=== PATIENT | male | born 1935 | race Caucasian/White ===

== ENCOUNTER 2017-02-02 18:05 | Inpatient (IN) | payer MEDICARE, BC ==
[~2017-02-02] VITALS: Ht 167.6 cm; Wt 81.0 kg
[2017-02-02 18:27] VITALS: BP 173/80; PULSE 70; RESP 18; TEMP 98.6; O2SAT 97
[2017-02-02 20:00] VITALS: BP 146/68; PULSE 66; RESP 19; TEMP 98.2; O2SAT 96
--- NOTE | 2017-02-02 23:54 | HHI.HP ---
[place] [facility] Primary Care Physician Gregory Brody, DO Admission Diagnosis Diagnoses: Travel History International Travel<30 Days: No Contact w/Intl Traveler <30 Da: No Traveled to Known Affected Are: No History of Present Illness History from patient, review of medical records from [facility]. Patient reported that he presented to [facility] in [facility] on January after he had chest pain in the middle of the night around 4 AM. He is unsure whether the chest pain woke him up or whether he was already awake. He reports the pain was midsternal, with heaviness sensation, with radiation to his jaw and his upper extremities. He was evaluated by pc analyst Dr. Saxena there and did undergo coronary angiogram on the same date February 02, 2017. Angiogram reports were missing in the paper chart although the CT disc is available in chart. According to the patient, Dr. Saxena had told him that he had 3 major blood vessels that were blocked and that he would need CABG. Patient reports of prior history of CAD back in the . He stated that at one point he was on beta blockers, and aspirin. He however was no longer on any medications for blood pressure or the heart because for one reason or the other, he does not want to take it and also his doctors did not pressure him to do so. He then had a stress test with Dr. Saxena recently and was actually scheduled for angiogram sometime March. This was canceled now because he had acute coronary syndrome presenting to hospital instead yesterday. Patient's reports a prior history of smoking. Quit in . He states he quit in . His case was discussed with cardiothoracic surgeon by Dr. Saxena and patient was transferred to hours facility for CABG. Patient is currently on heparin drip from the outside facility. Patient is chest pain-free at present. Apart from the chest pain, patient denies any recent fever/nausea/vomiting/ diarrhea/urinary burning or pain on urination. He denies any hematemesis/hematochezia/melena/hematuria. Denies any shortness of breath/palpitations/syncopal episodes. Past Family Social History Past Medical History CAD- had been on cardiac meds in , had stress test with Dr Saxena but was told at that time for scheduled angiogram some time in mar; but was never on beta blockers or aspirin Hypertension Diabetes History of renal stone BPH basal cell cancer of nose Past Surgical History basal cell cancer sx coronary angiogram inguinal hernia left Reported Medications metformin 500mg bid zocor every other day arthirits medicine-combination med not taking any BP meds at home no ASA at home Allergies: Coded Allergies: No Known Allergies (Unverified , 02/02/17) Family History mom- stroke brother- bone cancer father- cancer Social History used to smoke, but quit in mid to late no etoh or drugs Physical Exam Vital Signs Vital Signs Date Time Temp Pulse Resp B/P Pulse Ox O2 Delivery O2 Flow Rate FiO2 02/02/17 20:00 98.2 66 19 146/68 96 02/02/17 18:27 98.6 70 18 173/80 97 Physical Exam GENERAL: This is a well-nourished, well-developed patient, in no apparent distress. SKIN: No rashes, ecchymoses or lesions. Cool and dry. HEAD: Atraumatic. Normocephalic. No temporal or scalp tenderness. EYES: No scleral icterus. No injection or drainage. ENT: Nose without bleeding, purulent drainage or septal hematoma. Airway patent. NECK: Trachea midline. No JVD Cardiovascular: Regular rate and rhythm, no murmur appreciated. RESPIRATORY: Clear to auscultation. Breath sounds equal bilaterally. No wheezes , rales, or rhonchi. GASTROINTESTINAL: Abdomen soft, non-tender, nondistended. No guarding. MUSCULOSKELETAL: Extremities without clubbing, cyanosis, or edema. No calf tenderness. NEUROLOGICAL: Awake and alert. Motor and sensory grossly within normal limits. Normal speech. Laboratory Labs reviewed. CBCnormal. PT PTT within normal limits. Chemistryreviewed. Within normal limits. Troponin less than 0.012. Blood sugar 138 [facility]. No acute pulmonary disease demonstrated. Cardiomegaly present. Assessment and Plan Assessment and Plan Impression: Non-ST elevation MIstatus post coronary angiogram on February 02, 2017 at [facility] in [facility]. Found significant 3 vessel disease per patient's report. Pending CABG. CAD- had been on cardiac meds in , had stress test with Dr Saxena but was told at that time for scheduled angiogram some time in mar; but was never on beta blockers or aspirin Hypertension Diabetes History of renal stone BPH basal cell cancer of nose Plan: Would continue heparin drip. Continue aspirin coreg 3.125mg po q12hrs' fingersicks and sliding scale insulin diet for now till CT sx evaluates DVT prophylaxis on heparin Discussed Condition With patient, his nurse, and Dr Phillips who spoke to CT surgeon Physician Certification 2 Midnight Certification Type: Admission for Inpatient Services Order for Inpatient Services The services are ordered in accordance with Medicare regulations or non- Medicare payer requirements, as applicable. In the case of services not specified as inpatient-only, they are appropriately provided as inpatient services in accordance with the 2-midnight benchmark. Estimated LOS (days): 4 days is the estimated time the patient will need to remain in the hospital, assuming treatment plan goals are met and no additional complications. Post-Hospital Plan: Home Tanner Kelly MD Feb 02, 2017 23:54
[2017-02-03] VITALS (10 sets, daily range): BP systolic 134–157; BP diastolic 65–78; PULSE 63–77; RESP 18–20; TEMP 97.4–98.7; O2SAT 95–98
[2017-02-03] MEDS ORDERED: HEPARIN-D5W INJ 250 ML IV SCH (01:00)
[2017-02-03] MEDS ORDERED: DEXTROSE 50% IN WATER 50 ML VIAL(D50) IV PRN (01:00)
[2017-02-03] MEDS ORDERED: GLUCAGON 1 MG/ML VIAL OTHER PRN (01:00)
[2017-02-03] MEDS ORDERED: ZOCO40TA PO (04:25)
[2017-02-03] MEDS ORDERED: METF500T PO (04:25)
[2017-02-03] MEDS ORDERED: SM M250T (04:25)
[2017-02-03] MEDS ORDERED: LUTE40CA2 PO (04:25)
[2017-02-03] MEDS ORDERED: VITA10002 PO (04:25)
[2017-02-03] MEDS ORDERED: GLUC500C5 PO (04:25)
[2017-02-03] MEDS ORDERED: CINN500C12 (04:25)
[2017-02-03] MEDS ORDERED: VITA250T3 PO (04:25)
[2017-02-03] MEDS ORDERED: DICL75TA PO (04:25)
[2017-02-03] MEDS ORDERED: FISH1000 (04:25)
[2017-02-03] MEDS ORDERED: VITA1000 PO (04:25)
[2017-02-03] MEDS ORDERED: SAW450CA2 PO (04:25)
[2017-02-03 05:34] LABS: MEAN CELL VOLUME 94.3 FL (80.0-100.0); MEAN CORPUSCULAR HEMOGLOBIN 30.6 PG (27.0-34.0); MEAN CORPUSCULAR HGB CONC 32.4 % (32.0-36.0); PLATELET COUNT 294 TH/MM3 (150-450); RED BLOOD COUNT 4.14 MIL/MM3 (4.50-5.90); RED CELL DISTRIBUTION WIDTH 13.2 % (11.6-17.2); REVIEW FLAG FINAL; WHITE BLOOD COUNT 9.8 TH/MM3 (4.0-11.0)
[2017-02-03 05:51] LABS: APTT (PATIENT) 35.5 SEC (24.3-30.1); PROTHROMBIN TIME - PATIENT 11.2 SEC (9.8-11.6)
[2017-02-03] MEDS ORDERED: HEPARIN SODIUM - IV 10,000 UNITS/10 ML VIAL IV PRN ×2 (07:00)
[2017-02-03] MEDS: INSULIN ASPART SUPPLEMENTAL SCALE SQ SCH ×3 (07:00→16:00)
[2017-02-03] MEDS: CARVEDILOL 3.125 MG TAB PO SCH ×2 (08:56→21:45)
[2017-02-03 10:01] LABS: AUTOMATED NEUTROPHIL # 6.6 TH/MM3 (1.8-7.7); BASOPHIL # 0.1 TH/MM3 (0-0.2); BASOPHIL % 0.9 % (0.0-2.0); EOSINOPHIL # 0.2 TH/MM3 (0-0.4); HEMO FLAGS DIFF FINAL; LYMPH % 16.9 % (9.0-44.0); LYMPHOCYTE # 1.5 TH/MM3 (1.0-4.8); MEAN CELL VOLUME 93.1 FL (80.0-100.0); MEAN CORPUSCULAR HEMOGLOBIN 31.6 PG (27.0-34.0); MEAN CORPUSCULAR HGB CONC 33.9 % (32.0-36.0); MONO % 6.9 % (0.0-8.0); NEUT % 73.3 % (16.0-70.0); PLATELET COUNT 273 TH/MM3 (150-450); RED BLOOD COUNT 4.08 MIL/MM3 (4.50-5.90); RED CELL DISTRIBUTION WIDTH 13.1 % (11.6-17.2)
[2017-02-03 10:04] LABS: PROTHROMBIN TIME - PATIENT 11.5 SEC (9.8-11.6)
[2017-02-03 10:19] LABS: BICARBONATE 27.5 MEQ/L (21.0-32.0); POTASSIUM 3.6 MEQ/L (3.5-5.1)
[2017-02-03 13:25] LABS: APTT (PATIENT) 42.2 SEC (24.3-30.1)
[2017-02-03] MEDS: ASPIRIN EC 81 MG TABEC PO SCH (16:18)
[2017-02-03] MEDS ORDERED: SODIUM CHLORIDE 0.9% FLUSH 10 ML FLUSH IV FLUSH PRN (17:30)
[2017-02-03] MEDS ORDERED: ceFAZolin 2 GM PREMIX 50 ML IV SCH (17:30)
[2017-02-03] MEDS ORDERED: CEFAZOLIN INJ 500 MG in SODIUM CHLORIDE 0.9% IRR BTL 500 ML IRRIGATION SCH (17:30)
[2017-02-03] MEDS ORDERED: METOPROLOL TARTRATE 25 MG TAB PO SCH (17:30)
[2017-02-03] MEDS ORDERED: CHLORHEXIDINE GLUCONATE 4% SOLN 120 ML BTL TOPICAL SCH (17:30)
--- NOTE | 2017-02-03 18:40 | RADRPT ---
EXAM DATE/TIME: 02/03/2017 18:25 [facility] COMPARISON: No previous studies available for comparison. INDICATIONS : Evaluate for pneumonia, pneumothorax, and communicable disease. MEDICAL HISTORY : None. SURGICAL HISTORY : None. ENCOUNTER: Initial ACUITY: 1 day PAIN SCORE: 0/10 LOCATION: Bilateral chest FINDINGS: Cardiomegaly and mild diffuse interstitial prominence. Degenerative changes of the spine. On the late ral view there is increased density overlying the heart suspect for either lingular or right middle l obe airspace disease, less conspicuous on the frontal projection. CONCLUSION: Airspace disease and interstitial edema suspected. Eduard Luciano MD on February 03, 2017 at 18:38 Board Certified Radiologist. This report was verified electronically.
[2017-02-03] MEDS ORDERED: PAPAVERINE INJ 60 MG, NITROGLYCERIN INJ 100 MCG, DILTIAZEM INJ 100 MG in SODIUM CHLORID... IRRIGATION SCH (19:00)
[2017-02-03] MEDS ORDERED: INSULIN REGULAR (IV INFUSION) 100 UNITS in SODIUM CHLORIDE 0.9% INJ 100 ML IV SCH (20:00)
--- NOTE | 2017-02-03 20:19 | RADRPT ---
EXAM DATE/TIME: 02/03/2017 19:18 [facility] COMPARISON: No previous studies available for comparison. INDICATIONS : Preop cardiac surgery. MEDICAL HISTORY : Hypercholesterolemia. CAD. Kidney stones. SURGICAL HISTORY : Left groin surgery. TURP. ENCOUNTER: Initial ACUITY: 1 day PAIN SCORE: 2/10 LOCATION: Bilateral neck PEAK SYSTOLIC VELOCITIES (cm/sec): ICA/CCA RATIO: Right: 1.5 Left: 1.8 ICA: Right: 95 Left: 114 CCA: Right: 63 Left: 63 ECA: Right: 105 Left: 93 VERTEBRAL: Right: 46 antegrade Left: 66 antegrade Elevated flow velocities and ICA/CCA ratios have been found to correlate with increased degrees of vessel stenosis, calculated as percentage of diameter relative to a normal segment of distal ICA/CCA FINDINGS: RIGHT CAROTID: No significant stenosis is visualized. The waveforms are within normal limits. LEFT CAROTID: No significant stenosis is visualized. The waveforms are within normal limits. VERTEBRAL ARTERIES: Antegrade flow is seen in both vertebral arteries. MISCELLANEOUS: None. CONCLUSION: 1. No evidence for hemodynamically significant stenosis. There is [id number] atherosclerosis id entified on grayscale images at the bifurcations. This is not hemodynamically significant. Eduard Luciano MD on February 03, 2017 at 20:17 Board Certified Radiologist. This report was verified electronically.
--- NOTE | 2017-02-03 20:25 | RADRPT ---
EXAM DATE/TIME: 02/03/2017 19:38 [facility] COMPARISON: No previous studies available for comparison. INDICATIONS : Preop cardiac surgery. MEDICAL HISTORY : Hypercholesterolemia. CAD. Kidney stones. SURGICAL HISTORY : TURP. Left groin surgery. ENCOUNTER: Initial ACUITY: 1 day PAIN SCORE: 3/10 LOCATION: Bilateral leg. TECHNIQUE: Venous ultrasound of the left and right leg was performed from the inguinal ligament to the proximal calf. Real-time, color Doppler and spectral tracing, compression and augmentation techniques were us ed. FINDINGS: RIGHT LEG: There is normal compressibility of the deep venous system from the inguinal region to the proximal ca lf. No echogenic clot is seen in the lumen of the common femoral, femoral, popliteal, and posterior tibial veins. There is a normal response of the venous system to proximal and distal augmentation an d respiration. LEFT LEG: There is normal compressibility of the deep venous system from the inguinal region to the proximal ca lf. No echogenic clot is seen in the lumen of the common femoral, femoral, popliteal, and posterior tibial veins. There is a normal response of the venous system to proximal and distal augmentation an d respiration. CONCLUSION: Normal examination. Eduard Luciano MD on February 03, 2017 at 20:23 Board Certified Radiologist. This report was verified electronically.
--- NOTE | 2017-02-03 20:33 | RADRPT ---
EXAM DATE/TIME: 02/03/2017 19:47 [facility] COMPARISON: No previous studies available for comparison. INDICATIONS : Preop cardiac surgery. MEDICAL HISTORY : Hypercholesterolemia. Kidney stones. CAD. SURGICAL HISTORY : TURP. Left groin surgery. ENCOUNTER: Initial ACUITY: 1 day PAIN SCORE: 3/10 LOCATION: Bilateral leg. GREATER SAPHENOUS VEIN THIGH: PROXIMAL: Right 5 mm Left 6 mm MID: Right 1 mm Left 2 mm DISTAL: Right 1 mm Left 3 mm CALF: PROXIMAL: Right 2 mm Left 2 mm MID: Right 2 mm Left 1 mm DISTAL: Right 2 mm Left 2 mm FINDINGS: The venous system of the lower extremities are patent by color Doppler imaging. Measurements of the leg veins (in mm) are listed above. CONCLUSION: 1. Venous mapping as above. Patent vessels. Eduard Luciano MD on February 03, 2017 at 20:31 Board Certified Radiologist. This report was verified electronically.
[2017-02-03] MEDS: ATORVASTATIN 10 MG TAB PO SCH (21:45)
[2017-02-03 23:36] LABS: APTT (PATIENT) 42.5 SEC (24.3-30.1)
[2017-02-04] VITALS (16 sets, daily range): BP systolic 108–136; BP diastolic 55–88; PULSE 54–74; RESP 16–20; TEMP 97–98.6; O2SAT 95–100
--- NOTE | 2017-02-04 08:16 | MB ---
cc: TERRIE GRACE DATE OF 1935 DATE OF CONSULTATION 02/03/2017 HISTORY An 81-year-old male transferred from [facility] in [facility] apparently admitted on the after developing chest pain which woke him up about 4:00 a.m. The pain was midsternal, heaviness in his chest. He was evaluated by Dr. Manuel Saxena underwent cardiac catheterization, had three-vessel disease and was transferred to our facility to evaluate for coronary artery bypass grafting. The patient had a recent stress test with Dr. Saxena and was scheduled for angiogram in March of this year. PAST MEDICAL HISTORY Includes: 1. Coronary artery disease. 2. Diabetes mellitus. 3. History of kidney stones. 4. Benign prostatic hypertrophy. 5. Basal cell cancer of the nose. 6. Arthritis. PAST SURGICAL HISTORY Surgeries include: 1. Basal cell cancer removal on the left part of his nose. 2. Coronary angiogram. 3. Inguinal hernia repair on the left. ALLERGIES NO KNOWN ALLERGIES. MEDICATIONS Home meds include: 1. Metformin 500 b.i.d. 2. Zocor [id number]. Does not take a regular aspirin. FAMILY HISTORY Mother 72 from a stroke. Brother in 1985 from bone cancer. Father in 1956, age 65 from prostate cancer. 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 Smoked for about 21 years, quit in the mid 70s, about 2-2-1/2 packs per day. No alcohol or illicit drugs. REVIEW OF SYSTEMS GENERAL: No night sweats, fever, heat or cold intolerance. SKIN: No psoriasis, itching or hives. HEENT: No blurred vision, hearing loss. RESPIRATORY: Mild shortness of breath. CARDIOVASCULAR: As above. GASTROINTESTINAL: No diarrhea, vomiting. GENITOURINARY: No burning, frequency, urgency CENTRAL NERVOUS SYSTEM: No history of TIA, CVA, seizure disorder. ENDOCRINOLOGY: Positive for diabetes. PHYSICAL EXAMINATION VITAL SIGNS: On exam blood pressure was 140/70, heart rate 70, temp maximum 97.4. GENERAL: The patient is awake, alert, in no acute distress. HEENT: Head is normocephalic, atraumatic. Pupils equal and reactive. Oral mucosa pink, moist. NECK: Supple. No JVD. CARDIOVASCULAR: Heart sounds S1-S2, regular rate and rhythm. No audible rubs or gallops. LUNGS: Clear to auscultation. No wheezes or rhonchi. ABDOMEN: Soft, nontender. No masses or organomegaly. EXTREMITIES: No cyanosis, clubbing or edema. LABORATORY FINDINGS Received with the patient included hemoglobin 13, hematocrit of 41, white cell count 7, platelet count 381. AST 20, ALT 23. Troponin less than 0.012. INR was 1.04. IMPRESSION This is an 81-year-old male history of coronary artery disease status post unstable angina and heart catheterization with three-vessel disease. The results of the cardiac cath are pending from [facility]. The cardiac films have been evaluated by Dr. Terrie Grace. Planning will be for surgery on Thursday. In the meantime we will check a 2-D echocardiogram, also carotid ultrasound, leg vein mapping, EKG and further evaluation pending. STS data will then be discussed with the patient and documented in the electronic record. DICTATED BY: STRALA Bourgeois MD SHAN Miek/SHERWIN /5:18 PM /8:16 AM
--- NOTE | 2017-02-04 08:41 | EKG ---
Date Performed: 02/04/2017 Time Performed: 05:10:12 PTAGE: 81 years EKG: Sinus bradycardia Leftward axis Poor R wave progression - probable normal variant Anterior T wave changes are nonspecific Low QRS voltages in precordial leads Borderline ECG PREVIOUS TRACING : 02/03/2017 22.10 DOCTOR: Scar Benz Interpretating Date/Time 02/04/2017 08:39:57
[2017-02-04] MEDS ORDERED: FUROSEMIDE 40 MG/4 ML VIAL IV PUSH ONE (08:45)
[2017-02-04] MEDS ORDERED: POTASSIUM CHLORIDE 10 MEQ CONTROLLED RELEASE TAB PO ONE (08:45)
--- NOTE | 2017-02-04 08:55 | EKG ---
Date Performed: 02/03/2017 Time Performed: 22:10:20 PTAGE: 81 years EKG: Sinus rhythm Leftward axis Poor R wave progression - probable normal variant Low QRS voltages in precordial leads Borderline ECG NO PREVIOUS TRACING DOCTOR: Scar Benz Interpretating Date/Time 02/04/2017 08:54:09
[2017-02-04] MEDS: SODIUM CHLORIDE 0.9% FLUSH 10 ML FLUSH IV FLUSH SCH ×2 (09:00→22:07)
[2017-02-04] MEDS: POLYETHYLENE GLYCOL 17 GM PKG PO SCH (09:43)
[2017-02-04] MEDS: ASPIRIN EC 81 MG TABEC PO SCH (09:44)
[2017-02-04] MEDS: CARVEDILOL 3.125 MG TAB PO SCH ×2 (09:44→22:06)
[2017-02-04] MEDS: DOCUSATE SODIUM 100 MG CAP PO SCH ×2 (09:44→22:06)
--- NOTE | 2017-02-04 10:49 | PD.CAR.PN ---
CVT Progress Note Subjective/Hospital Course: 81/ male transfer from [facility] , chest pain , unstable angina , underwent cardiac cath by Dr Tony Saxena/ found to have 3 vessel coronary disease, Cath films reviewed by Dr Grace plan is to get cath report from transfer facility, and schedule for CABG on Thursday , 2-D echo pending for EF and eval for any valvular disease PMH: CAD, DM, BPH, kidney stones, basal ca of the nose ( removal ) 02/04 pt is pain free, on room air, CXR noted interstitial edema / dose of lasix given PFT pending for surgery on thursday Objective: GENERAL: SKIN: Warm and dry. HEAD: Normocephalic. EYES: No scleral icterus. No injection or drainage. NECK: Supple, trachea midline. No JVD or lymphadenopathy. CARDIOVASCULAR: Regular rate and rhythm without murmurs, gallops, or rubs. RESPIRATORY: Breath sounds equal bilaterally. No accessory muscle use. GASTROINTESTINAL: Abdomen soft, non-tender, nondistended. MUSCULOSKELETAL: No cyanosis, or edema. BACK: Nontender without obvious deformity. No CVA tenderness. Vital Signs Date Time Temp Pulse Resp B/P Pulse Ox O2 Delivery O2 Flow Rate FiO2 02/04/17 05:00 59 02/04/17 04:00 98.5 58 16 125/55 97 02/04/17 04:00 59 02/04/17 04:00 98.6 58 20 125/55 97 02/04/17 03:00 60 02/04/17 02:00 54 02/04/17 01:00 54 02/04/17 00:00 54 02/04/17 00:00 98.2 55 16 124/68 97 02/04/17 00:00 98.0 55 20 124/68 97 02/03/17 23:00 66 02/03/17 22:00 70 02/03/17 21:00 70 02/03/17 20:00 98.0 72 20 149/78 97 02/03/17 20:00 98.0 72 18 149/78 97 02/03/17 20:00 68 02/03/17 19:00 70 02/03/17 16:00 97.4 70 20 149/75 96 02/03/17 12:00 98.0 63 20 146/75 97 Labs: Laboratory Tests Test 02/03/17 02/04/17 22:54 04:50 Activated Partial 42.5 SEC 47.0 SEC Thromboplast Time (24.3-30.1) (24.3-30.1) Result Diagram: 02/03/1791202/03/17912 Telemetry: NSR (1) Unstable angina Plan: ASA, statin BB for surgery on thursday (2) Coronary artery disease (3) Diabetes mellitus Plan: insulin sliding scale / HGB A1C pending diabetic diet (4) Hyperlipemia Plan: statin (5) History of BPH Rupa Sevilla Feb 04, 2017 10:49
[2017-02-04] MEDS ORDERED: POTASSIUM BICARBONATE 25 MEQ EFFERVESCENT TAB PO ONE (11:00)
[2017-02-04] MEDS: INSULIN ASPART SUPPLEMENTAL SCALE SQ SCH ×3 (11:00→21:00)
--- NOTE | 2017-02-04 11:11 | HHI.PR ---
Subjective Remarks Patient reports he is feeling great. He denies chest pain or shortness of breath. Objective Vitals Vital Signs Date Time Temp Pulse Resp B/P Pulse Ox O2 Delivery O2 Flow Rate FiO2 02/04/17 08:00 97.9 71 20 136/88 100 02/04/17 07:00 97.9 71 20 136/88 100 02/04/17 07:00 71 02/04/17 05:00 59 02/04/17 04:00 98.5 58 16 125/55 97 02/04/17 04:00 59 02/04/17 04:00 98.6 58 20 125/55 97 02/04/17 03:00 60 02/04/17 02:00 54 02/04/17 01:00 54 02/04/17 00:00 54 02/04/17 00:00 98.2 55 16 124/68 97 02/04/17 00:00 98.0 55 20 124/68 97 02/03/17 23:00 66 02/03/17 22:00 70 02/03/17 21:00 70 02/03/17 20:00 98.0 72 20 149/78 97 02/03/17 20:00 98.0 72 18 149/78 97 02/03/17 20:00 68 02/03/17 19:00 70 02/03/17 16:00 97.4 70 20 149/75 96 02/03/17 12:00 98.0 63 20 146/75 97 I/O 02/03/17 02/03/17 02/03/17 02/04/17 02/04/17 02/04/17 06:59 14:59 22:59 06:59 14:59 22:59 Intake Total 240 ml 372 ml Output Total 600 ml 600 ml 400 ml Balance -600 ml -360 ml -28 ml Intake Oral 240 ml 240 ml IV Total 132 ml Output Urine Total 600 ml 600 ml 400 ml # Bowel Movements 1 Result Diagram: 02/03/1791202/03/17912 Imaging Last Impressions Lower Extremity Ultrasound 02/03/17 0000 Signed Impressions: Service Date/Time: Friday, February 03, 2017 19:47 - CONCLUSION: 1. Venous mapping as above. Patent vessels. Eduard Luciano MD Chest X-Ray 02/03/17 0000 Signed Impressions: Service Date/Time: Friday, February 03, 2017 18:25 - CONCLUSION: Airspace disease and interstitial edema suspected. Eduard Luciano MD Carotid Artery Ultrasound 02/03/17 0000 Signed Impressions: Service Date/Time: Friday, February 03, 2017 19:18 - CONCLUSION: 1. No evidence for hemodynamically significant stenosis. There is [id number] atherosclerosis identified on grayscale images at the bifurcations. This is not hemodynamically significant. Eduard Luciano MD Objective Remarks GENERAL: This is a well-nourished, well-developed patient, in no apparent distress. CARDIOVASCULAR: Normal rate and regular rhythm without murmurs, gallops, or rubs. RESPIRATORY: Good respiratory efforts. Breath sounds equal and clear to auscultation bilaterally. GASTROINTESTINAL: Abdomen soft, non-tender, non-distended. Normal active bowel sounds MUSCULOSKELETAL: Extremities without cyanosis, or edema. NEURO: Alert & Oriented x4 to person, place, time, situation. Moves all ext x4 PSYCH: Appropriate mood and affect. A/P Assessment and Plan 81/ male transfer from [facility] , chest pain , unstable angina , underwent cardiac cath by Dr Tony Saxena/ found to have 3 vessel coronary disease CAD/Non-ST elevation MIstatus post coronary angiogram on February 02, 2017 at [facility] in [facility]. Found significant 3 vessel disease per patient' s report. - CT surgery following. Plan for CABG on Thursday. - On heparin drip, Coreg, aspirin, Lipitor 2-D echo pending Hypertension -Controlled. Continue Coreg and monitor. Diabetes - Sliding scale insulin with Accu-Cheks. - Check hemoglobin A1c. Discharge Planning Awaiting CABG. Vaishali Saldivar MD Feb 04, 2017 11:11
[2017-02-04 14:29] LABS: BACTERIA, URINE RARE /hpf; BLOOD, URINE NEG (NEG); COMMENT (UR) CULT NOT INDICATED; CULTURE IF INDICATED CULT NOT INDICATED; GLUCOSE,URINE NEG (NEG); KETONE, URINE NEG (NEG); MUCUS URINE FEW /lpf (OCC); NITRITE,URINE NEG (NEG); URINE COLOR LIGHT-YELLOW (YELLW/STRAW)
--- NOTE | 2017-02-04 15:34 | ECHRPT ---
Indication: PRE OP CABG CONCLUSIONS Normal left ventricular size. Mild concentric left ventricular hypertrophy. The left ventricular systolic function is normal with an estimated ejection fraction in the range of 60-65%. No regional wall motion abnormalities are present. Doppler parameters are consistent with impaired left ventricular relaxtion (grade 1 diastolic dysfun ction). Mild mitral valve regurgitation. There is mild tricuspid valve regurgitation. Normal estimated pulmonary pressures. BP: 125 / 55 HR: 58 Rhythm: MEASUREMENTS (Male / Female) Normal Values Technical Quality: 2D ECHO LV Diastolic Diameter PLAX 3.8 cm 4.2 - 5.9 / 3.9 - 5.3 cm LV Systolic Diameter PLAX 2.7 cm IVS Diastolic Thickness 1.3 cm 0.6 - 1.0 / 0.6 - 0.9 cm LVPW Diastolic Thickness 1.3 cm 0.6 - 1.0 / 0.6 - 0.9 cm LV Relative Wall Thickness 0.7 LVOT Diameter 2.0 cm Aortic Root Diameter 2.8 cm LA Systolic Diameter LX 3.3 cm 3.0 - 4.0 / 2.7 - 3.8 cm M-MODE AV Cusp Separation MM 1.8 cm DOPPLER AV Peak Velocity 134.0 cm/s AV Peak Gradient 7.2 mmHg AV Mean Gradient 4.0 mmHg AV Velocity Time Integral 25.4 cm LVOT Peak Velocity 89.5 cm/s LVOT Peak Gradient 3.2 mmHg LVOT Velocity Time Integral 16.4 cm LVOT Cardiac Index 1538.3 cm/minm AV Area Cont Eq vti 2.0 cm AV Area Cont Eq pk 2.1 cm Mitral E Point Velocity 53.3 cm/s Mitral A Point Velocity 85.9 cm/s Mitral E to A Ratio 0.6 LV E' Lateral Velocity 6.4 cm/s Mitral E to LV E' Lateral Ratio 8.3 LV E' Septal Velocity 4.8 cm/s Mitral E to LV E' Septal Ratio 11.2 TR Peak Velocity 247.0 cm/s TR Peak Gradient 24.4 mmHg PV Peak Velocity 88.0 cm/s PV Peak Gradient 3.1 mmHg FINDINGS LEFT VENTRICLE Normal left ventricular size. Mild concentric left ventricular hypertrophy. The left ventricular systolic function is normal with an estimated ejection fraction in the range of 60-65%. No regional wall motion abnormalities are present. Doppler parameters are consistent with impaired left ventricular relaxtion (grade 1 diastolic dysfun ction). RIGHT VENTRICLE Normal right ventricular size and systolic function. LEFT ATRIUM The left atrial size is normal. RIGHT ATRIUM The right atrial size is normal. ATRIAL SEPTUM Normal atrial septal thickness without atrial level shunting by limited color doppler interrogation. AORTA The aortic root and proximal ascending aorta are normal in size on limited imaging. MITRAL VALVE Structurally normal mitral valve. Mild mitral valve regurgitation. AORTIC VALVE Trileaflet aortic valve. No aortic valve stenosis or regurgitation. TRICUSPID VALVE Structurally normal tricuspid valve. There is mild tricuspid valve regurgitation. Normal estimated pulmonary pressures. PULMONARY VALVE The pulmonary valve is not well visualized. VESSELS The inferior vena cava is normal in size. PERICARDIUM No pericardial effusion. Scar Benz MD, FACC (Electronically Signed) Final Date:04 February 2017 15:33
[2017-02-04 16:24] LABS: HEMOGLOBIN A1a 1.5 %; HEMOGLOBIN A1b 1.8 %; HEMOGLOBIN Ao 84.5 %; HEMOGLOBIN LA1C 1.8 %; HEMOGLOBIN P3 3.7 %
[2017-02-04] MEDS: ATORVASTATIN 10 MG TAB PO SCH (22:06)
[2017-02-05] VITALS (20 sets, daily range): BP systolic 118–147; BP diastolic 70–78; PULSE 56–110; RESP 16–20; TEMP 98–98.9; O2SAT 96–98
[2017-02-05 06:45] LABS: AUTOMATED NEUTROPHIL # 6.4 TH/MM3 (1.8-7.7); BASOPHIL # 0.1 TH/MM3 (0-0.2); BASOPHIL % 0.7 % (0.0-2.0); EOSINOPHIL # 0.3 TH/MM3 (0-0.4); EOSINOPHIL % 2.9 % (0.0-4.0); HEMATOCRIT 37.6 % (39.0-51.0); HEMO FLAGS DIFF FINAL; LYMPH % 20.4 % (9.0-44.0); LYMPHOCYTE # 1.9 TH/MM3 (1.0-4.8); MEAN CELL VOLUME 92.6 FL (80.0-100.0); MEAN CORPUSCULAR HEMOGLOBIN 31.4 PG (27.0-34.0); MEAN CORPUSCULAR HGB CONC 33.9 % (32.0-36.0); MONO % 8.7 % (0.0-8.0); NEUT % 67.3 % (16.0-70.0); PLATELET COUNT 295 TH/MM3 (150-450); RED BLOOD COUNT 4.06 MIL/MM3 (4.50-5.90); RED CELL DISTRIBUTION WIDTH 13.1 % (11.6-17.2); WHITE BLOOD COUNT 9.5 TH/MM3 (4.0-11.0)
[2017-02-05] MEDS: INSULIN ASPART SUPPLEMENTAL SCALE SQ SCH ×4 (07:00→20:42)
[2017-02-05 07:01] LABS: APTT (PATIENT) 44.9 SEC (24.3-30.1); PROTHROMBIN TIME - PATIENT 11.5 SEC (9.8-11.6)
[2017-02-05 07:12] LABS: ANION GAP 7 MEQ/L (5-15); AST (GOT) 13 U/L (15-37); BICARBONATE 27.6 MEQ/L (21.0-32.0); BLOOD UREA NITROGEN 20 MG/DL (7-18); CHLORIDE 103 MEQ/L (98-107); GLOMERULAR FILTRATION RATE 86 ML/MIN (>89); POTASSIUM 3.8 MEQ/L (3.5-5.1); SODIUM (NA) 138 MEQ/L (136-145)
[2017-02-05 07:14] LABS: ALT (GPT) 19 U/L (12-78)
[2017-02-05 07:15] LABS: ALKALINE PHOSPHATASE 68 U/L (45-117); TOTAL BILIRUBIN ADULT 0.4 MG/DL (0.2-1.0)
[2017-02-05] MEDS: DOCUSATE SODIUM 100 MG CAP PO SCH ×2 (09:00→20:05)
[2017-02-05] MEDS: POLYETHYLENE GLYCOL 17 GM PKG PO SCH (09:00)
[2017-02-05] MEDS: SODIUM CHLORIDE 0.9% FLUSH 10 ML FLUSH IV FLUSH SCH ×2 (09:00→20:05)
[2017-02-05] MEDS: ASPIRIN EC 81 MG TABEC PO SCH (09:46)
[2017-02-05] MEDS: CARVEDILOL 3.125 MG TAB PO SCH ×2 (09:46→20:05)
--- NOTE | 2017-02-05 10:20 | HHI.PR ---
Subjective Remarks Patient reports he is feeling well. No chest pain or shortness of breath. Plan for CABG tomorrow. Objective Vitals Vital Signs Date Time Temp Pulse Resp B/P Pulse Ox O2 Delivery O2 Flow Rate FiO2 02/05/17 09:00 68 02/05/17 08:00 64 02/05/17 07:00 66 02/05/17 07:00 98.9 96 16 140/71 98 02/05/17 06:00 60 02/05/17 05:00 56 02/05/17 04:00 58 02/05/17 03:00 58 02/05/17 03:00 98.0 61 18 132/70 98 02/05/17 02:00 58 02/05/17 01:00 56 02/05/17 00:00 58 02/04/17 23:00 98.4 61 18 108/63 97 02/04/17 23:00 60 02/04/17 22:00 60 02/04/17 21:00 70 02/04/17 20:00 70 02/04/17 19:00 72 02/04/17 19:00 98.0 69 18 119/75 95 02/04/17 15:00 97.4 70 20 122/70 97 02/04/17 11:00 97.0 74 20 129/74 96 02/04/17 11:00 97.0 74 20 129/72 96 I/O 02/04/17 02/04/17 02/04/17 02/05/17 02/05/17 02/05/17 07:00 15:00 23:00 07:00 15:00 23:00 Intake Total 372 ml 940 ml 770 ml Output Total 400 ml 1000 ml 500 ml Balance -28 ml -60 ml 270 ml Intake Oral 240 ml 720 ml 480 ml IV Total 132 ml 220 ml 290 ml Output Urine Total 400 ml 1000 ml 500 ml # Bowel Movements 1 Result Diagram: 02/05/1761602/05/17616 Objective Remarks GENERAL: This is a well-nourished, well-developed patient, in no apparent distress. CARDIOVASCULAR: Normal rate and regular rhythm without murmurs, gallops, or rubs. RESPIRATORY: Good respiratory efforts. Breath sounds equal and clear to auscultation bilaterally. GASTROINTESTINAL: Abdomen soft, non-tender, non-distended. Normal active bowel sounds MUSCULOSKELETAL: Extremities without cyanosis, or edema. PSYCH: Appropriate mood and affect. A/P Assessment and Plan 81/ male transfer from [facility] for chest pain , unstable angina , underwent cardiac cath by Dr Tony Saxena/ found to have 3 vessel coronary disease CAD/Non-ST elevation MIstatus post coronary angiogram on February 02, 2017 at [facility] in [facility]. Found significant 3 vessel disease per patient' s report. - CT surgery following. Plan for CABG tomorrow. - On heparin drip, Coreg, aspirin, Lipitor 2-D echo showed mild ventricular hypertrophy and grade 1 diastolic dysfunction , otherwise unremarkable. Hypertension -Controlled. Continue Coreg and monitor. Diabetes - Sliding scale insulin with Accu-Cheks. - Check hemoglobin A1c. GI prophylaxis: Stool softener PRN constipation. DVT PPx: on Heparin Discharge Planning Awaiting CABG. Vaishali Saldivar MD Feb 05, 2017 10:20
--- NOTE | 2017-02-05 14:07 | PD.CAR.PN ---
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 HEAD: Normocephalic. EYES: No scleral icterus. No injection or drainage. NECK: Supple, trachea midline. No JVD or lymphadenopathy. CARDIOVASCULAR: Regular rate and rhythm without murmurs, gallops, or rubs. RESPIRATORY: Breath sounds equal bilaterally. No accessory muscle use. GASTROINTESTINAL: Abdomen soft, non-tender, nondistended. MUSCULOSKELETAL: No cyanosis, or edema. BACK: Nontender without obvious deformity. No CVA tenderness. Vital Signs Date Time Temp Pulse Resp B/P Pulse Ox O2 Delivery O2 Flow Rate FiO2 02/05/17 14:02 110 02/05/17 13:00 65 02/05/17 12:00 58 02/05/17 11:00 98.9 64 18 118/76 96 02/05/17 11:00 63 02/05/17 10:17 76 02/05/17 09:00 68 02/05/17 08:00 64 02/05/17 07:00 66 02/05/17 07:00 98.9 96 16 140/71 98 02/05/17 06:00 60 02/05/17 05:00 56 02/05/17 04:00 58 02/05/17 03:00 58 02/05/17 03:00 98.0 61 18 132/70 98 02/05/17 02:00 58 02/05/17 01:00 56 02/05/17 00:00 58 02/04/17 23:00 98.4 61 18 108/63 97 02/04/17 23:00 60 02/04/17 22:00 60 02/04/17 21:00 70 02/04/17 20:00 70 02/04/17 19:00 72 02/04/17 19:00 98.0 69 18 119/75 95 02/04/17 15:00 97.4 70 20 122/70 97 Labs: Laboratory Tests Test 02/05/17 02/05/17 06:17 06:21 White Blood Count 9.5 TH/MM3 (4.0-11.0) Red Blood Count 4.06 MIL/MM3 (4.50-5.90) Hemoglobin 12.7 GM/DL (13.0-17.0) Hematocrit 37.6 % (39.0-51.0) Mean Corpuscular Volume 92.6 FL (80.0-100.0) Mean Corpuscular Hemoglobin 31.4 PG (27.0-34.0) Mean Corpuscular Hemoglobin 33.9 % Concent (32.0-36.0) Red Cell Distribution Width 13.1 % (11.6-17.2) Platelet Count 295 TH/MM3 (150-450) Mean Platelet Volume 7.2 FL (7.0-11.0) Neutrophils (%) (Auto) 67.3 % (16.0-70.0) Lymphocytes (%) (Auto) 20.4 % (9.0-44.0) Monocytes (%) (Auto) 8.7 % (0.0-8.0) Eosinophils (%) (Auto) 2.9 % (0.0-4.0) Basophils (%) (Auto) 0.7 % (0.0-2.0) Neutrophils # (Auto) 6.4 TH/MM3 (1.8-7.7) Lymphocytes # (Auto) 1.9 TH/MM3 (1.0-4.8) Monocytes # (Auto) 0.8 TH/MM3 (0-0.9) Eosinophils # (Auto) 0.3 TH/MM3 (0-0.4) Basophils # (Auto) 0.1 TH/MM3 (0-0.2) CBC Comment DIFF FINAL Differential Comment Prothrombin Time 11.5 SEC (9.8-11.6) Prothromb Time International 1.0 RATIO Ratio Activated Partial 44.9 SEC Thromboplast Time (24.3-30.1) Sodium Level 138 MEQ/L (136-145) Potassium Level 3.8 MEQ/L (3.5-5.1) Chloride Level 103 MEQ/L (98-107) Carbon Dioxide Level 27.6 MEQ/L (21.0-32.0) Anion Gap 7 MEQ/L (5-15) Blood Urea Nitrogen 20 MG/DL (7-18) Creatinine 0.85 MG/DL (0.60-1.30) Estimat Glomerular Filtration 86 ML/MIN (>89) Rate Random Glucose 125 MG/DL (74-106) Calcium Level 8.7 MG/DL (8.5-10.1) Total Bilirubin 0.4 MG/DL (0.2-1.0) Aspartate Amino Transf 13 U/L (15-37) (AST/SGOT) Alanine Aminotransferase 19 U/L (12-78) (ALT/SGPT) Alkaline Phosphatase 68 U/L (45-117) Total Protein 6.6 GM/DL (6.4-8.2) Albumin 3.2 GM/DL (3.4-5.0) Blood Type AB POSITIVE AB POSITIVE Antibody Screen NEGATIVE Crossmatch Leukocyte-Reduced Red Blood Cells Blood Bank Comment Result Diagram: 02/05/1761602/05/17616 Telemetry: NSR (1) Unstable angina Plan: ASA, statin BB for surgery on thursday (2) Coronary artery disease (3) Diabetes mellitus Plan: insulin sliding scale / HGB A1C pending diabetic diet (4) Hyperlipemia Plan: statin (5) History of BPH Rupa Sevilla Feb 05, 2017 14:07
[2017-02-05 18:33] LABS: HEMOGLOBIN A1a 1.1 %; HEMOGLOBIN A1b 1.8 %; HEMOGLOBIN Ao 84.2 %; HEMOGLOBIN LA1C 2.1 %; HEMOGLOBIN P3 3.9 %
[2017-02-05] MEDS: ATORVASTATIN 10 MG TAB PO SCH (20:05)
[2017-02-06] VITALS (15 sets, daily range): BP systolic 87–140; BP diastolic 41–65; PULSE 64–85; RESP 8–23; TEMP 97.7–99.3; O2SAT 94–100
[2017-02-06] MEDS ORDERED: PROTAMINE SULFATE 250 MG/25 ML VIAL IV ONE (05:00)
[2017-02-06] MEDS ORDERED: SODIUM BICARBONATE 8.4% INJ 50 MEQ/50 ML SYR IV ONE (05:00)
[2017-02-06] MEDS ORDERED: HEPARIN SODIUM - SQ 10,000 UNITS/ML VIAL SQ ONE (05:00)
[2017-02-06] MEDS ORDERED: CALCIUM CHLORIDE 10% SOLN 1 GRAM/10 ML SYR IV ONE (05:00)
[2017-02-06] MEDS ORDERED: PROPOFOL 1000 MG/100 ML INJ 100 ML IV ONE (05:00)
[2017-02-06] MEDS ORDERED: PHENYLEPHRINE HCL 10 MG/ML VIAL IV ONE (05:00)
[2017-02-06] MEDS ORDERED: AMINOCAPROIC ACID INJ 250 MG/ML 20 ML VIAL IV ONE ×2 (05:00→10:52)
[2017-02-06] MEDS ORDERED: MAGNESIUM SULFATE 1000 MG/2 ML VIAL (PED) IV ONE (05:00)
[2017-02-06] MEDS: INSULIN ASPART SUPPLEMENTAL SCALE SQ SCH ×4 (06:18→20:15)
[2017-02-06 06:19] LABS: HEMATOCRIT 38.8 % (39.0-51.0); MEAN CELL VOLUME 94.1 FL (80.0-100.0); MEAN CORPUSCULAR HEMOGLOBIN 31.5 PG (27.0-34.0); MEAN CORPUSCULAR HGB CONC 33.5 % (32.0-36.0); PLATELET COUNT 302 TH/MM3 (150-450); RED BLOOD COUNT 4.12 MIL/MM3 (4.50-5.90); REVIEW FLAG FINAL; WHITE BLOOD COUNT 10.4 TH/MM3 (4.0-11.0)
[2017-02-06] MEDS ORDERED: methylPREDNISolone SOD SUCC 125 MG/2 ML VIAL ONE (06:20)
[2017-02-06] MEDS ORDERED: ceFAZolin 2 GM PREMIX 50 ML ONE (06:20)
[2017-02-06] MEDS ORDERED: HEPARIN SODIUM - SQ 10,000 UNITS/ML VIAL ONE (06:20)
[2017-02-06] MEDS ORDERED: VANCOMYCIN HCL 1000 MG VIAL ONE (06:20)
[2017-02-06] MEDS ORDERED: CARDIOPLEGIC IRR 1,000 ML ONE (06:36)
[2017-02-06] MEDS ORDERED: POTASSIUM CHLORIDE 40 MEQ/20 ML VIAL ONE (06:36)
[2017-02-06] MEDS ORDERED: ALBUMIN HUMAN 25% 12.5 GM/50 ML BAGP IV ONE (06:37)
[2017-02-06] MEDS ORDERED: HEPARIN SODIUM - IV 10,000 UNITS/10 ML VIAL ONE (06:37)
[2017-02-06] MEDS ORDERED: MANNITOL INJ 50 ML ONE (06:37)
[2017-02-06] MEDS ORDERED: CHLORHEXIDINE GLUCONATE 2 % 1 PACK (2 CLOTHS) TOPICAL ONE (07:13)
[2017-02-06] MEDS ORDERED: ACETAMINOPHEN 1000 MG/100 ML VIAL IV ONE (08:49)
[2017-02-06] MEDS ORDERED: DEXMEDETOMIDINE HCL 200 MCG/2 ML VIAL ONE (08:49)
[2017-02-06] MEDS: SODIUM CHLORIDE 0.9% FLUSH 10 ML FLUSH IV FLUSH SCH ×3 (09:00→20:16)
[2017-02-06] MEDS: ACETAMINOPHEN 1000 MG/100 ML VIAL IV SCH ×3 (09:00→20:16)
[2017-02-06] MEDS: ASPIRIN EC 81 MG TABEC PO SCH (09:00)
[2017-02-06] MEDS: DOCUSATE SODIUM 100 MG CAP PO SCH ×2 (09:00→20:14)
[2017-02-06] MEDS: POLYETHYLENE GLYCOL 17 GM PKG PO SCH (09:00)
[2017-02-06] MEDS ORDERED: CALCIUM CHLORIDE 10% 1 GRAM/10 ML VIAL IV PRN (10:15)
[2017-02-06] MEDS ORDERED: INSULIN REGULAR (IV INFUSION) 100 UNITS in SODIUM CHLORIDE 0.9% INJ 99 ML IV SCH (10:15)
[2017-02-06] MEDS ORDERED: POTASSIUM CHLORIDE 20 MEQ CONTROLLED RELEASE TAB PO PRN ×2 (10:15)
[2017-02-06] MEDS ORDERED: hydrALAZINE HCL 20 MG/ML VIAL IV PRN (10:15)
[2017-02-06] MEDS ORDERED: LACTATED RINGER'S 1000 ML INJ 500 ML IV PRN (10:15)
[2017-02-06] MEDS ORDERED: CLEVIDIPINE INJ 50 ML IV SCH (10:15)
[2017-02-06] MEDS ORDERED: POTASSIUM CHLOR 20 MEQ PREMIX 100 ML IV PRN ×2 (10:15)
[2017-02-06] MEDS ORDERED: METOPROLOL TARTRATE 5 MG/5 ML VIAL IV PUSH PRN (10:15)
[2017-02-06] MEDS ORDERED: SODIUM CHLORIDE 0.9% FLUSH 10 ML FLUSH IV FLUSH PRN (10:15)
[2017-02-06] MEDS ORDERED: ONDANSETRON HCL 4 MG/2 ML VIAL IV PUSH PRN (10:15)
[2017-02-06] MEDS ORDERED: RESP: RACEPINEPHRINE 2.25% 0.5 ML NEB NEB PRN (10:15)
[2017-02-06] MEDS ORDERED: MAGNESIUM SULFATE INJ 2 GM in SODIUM CHLORIDE 0.9% INJ 100 ML IV PRN ×4 (10:15)
[2017-02-06] MEDS ORDERED: ACETAMINOPHEN 325 MG TAB PO PRN (10:15)
[2017-02-06] MEDS ORDERED: DEXTROSE 50% IN WATER 50 ML VIAL(D50) IV PUSH PRN (10:15)
[2017-02-06] MEDS ORDERED: ALBUMIN HUMAN 5% 12.5 GM/250 ML BOTTLE IV PRN (10:15)
[2017-02-06] MEDS ORDERED: ACETAMINOPHEN 650 MG SUPP RECTAL PRN (10:15)
[2017-02-06] MEDS ORDERED: CALCIUM CHLORIDE INJ 1 GM in SODIUM CHLORIDE 0.9% INJ 100 ML IV PRN (10:15)
[2017-02-06] MEDS ORDERED: Post-op Orders (for Pharmacy) MISC OTHER ONE (10:15)
[2017-02-06] MEDS ORDERED: RESP: ALBUTEROL 2.5 MG/IPRATROPIUM 0.5 MG NEB (PRN) NEB (10:15)
--- NOTE | 2017-02-06 10:31 | PD.OP ---
cc: Terrie Grace MD; Manuel Saxena MD Operative Report Date of Surgery: Feb 06, 2017 Preoperative Diagnosis: (1) Unstable angina (2) Coronary artery disease Postoperative Diagnosis: same Procedure: Pump assisted beating heart CABG x 3 DONOVAN to LAD - good SVG to OM - good SVG to PDA - fair EVH Anesthesia: Dr. Brito Surgeon: Terrie Grace Black Top Paver Operator(s): CAPRI Lizarraga Operation and Findings: The risks, benefits, complications, treatment options, and expected outcomes were discussed with the patient. The possibilities of reaction to medication, pulmonary aspiration, perforation of viscus, bleeding, recurrent infection, the need for additional procedures, failure to diagnose a condition, and creating a complication requiring transfusion or operation were discussed with the patient. The patient concurred with the proposed plan, giving informed consent. The site of surgery properly noted/marked. The patient was taken to Operating Room, identified as Jatin Mckinney and the procedure verified as CABG, EVH. A Time Out was held and the above information confirmed. Standard monitoring lines and Ambrose catheter were placed. General anesthesia was induced. The patient was prepped and draped in a sterile fashion. A median sternotomy was performed and electrocautery was used to obtain hemostasis. The left internal mammary artery was procured as a pedicle from the 7th rib to the 1st rib in the usual manner. Simultaneously left greater saphenous vein was procured from the left leg using a minimally invasive endoscopic technique. The vein was prepared for anastomosis and the leg wound was irrigated and closed in 2 layers. The pericardium was opened and a pericardial sling was created using interrupted 0 silk sutures. The patient was heparinized for cardiopulmonary bypass and the distal mammary pedicle was instrumented for anastomosis. The heart was instrumented for cardiopulmonary bypass in the usual manner. The patient was noted to have significant calcification in the ascending aorta which precluded crossclamp use and arresting the heart. A Maquet stabilizer was used with a beating heart approach. The distal right coronary circulation was investigated and the distal PDA was opened with a Platte blade and found to be a 1 millimeter fair target with diffuse disease. Saphenous vein was approximated to the PDA artery using a running 7 0 Prolene suture. The graft was measured for length and orientation and was suspended from the pericardium. The 1st circumflex marginal artery was then opened with a Platte blade and found to be a 1.5 millimeter good target. The OM1 artery was intramyocardial. Saphenous vein was approximated to the OM1 artery using a running 7 0 Prolene suture. The graft was measured for length and orientation and was suspended from the pericardium. The distal LAD was opened with a Platte blade and found to be a 1.5 millimeter good target. The left internal mammary artery was approximated to the LAD using a running 7 0 Prolene suture. The pedicle was attached to the epicardium using interrupted 5 0 silk suture. The patient was systemically rewarmed. The proximal anastomoses to the PDA and OM1 graft was accomplished using a running 5 0 Prolene suture after creating an aortotomy and using a Heartstring device. All proximal and distal anastomoses were examined for hemostasis. The patient was weaned from cardiopulmonary bypass. Protamine was given. There was no adverse reaction. Decannulation was carried out without incident. Wound was checked for hemostasis which was obtained using electrocautery. A 36 Romanian mediastinal and 32 Romanian left pleural chest was were placed and secured to the skin with 0 silk suture. The sternum was closed with stainless steel wire. The fascia was closed with 1. PDS. The subcutaneous tissue was closed using a running 2-0 Vicryl suture. The skin was closed with 4-0 Monocryl. Sterile dressings were placed. At the end of the operation, all sponge, instruments, and needle counts were correct. The patient was transferred to the CVICU in stable condition. 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
[2017-02-06] MEDS ORDERED: VECURONIUM BROMIDE 10 MG VIAL IV ONE (10:52)
[2017-02-06] MEDS ORDERED: LACTATED RINGER'S 1000 ML INJ 1,000 ML IV ONE (10:52)
[2017-02-06] MEDS ORDERED: SODIUM CHLORIDE 0.9% INJ 200 ML IV ONE (10:53)
[2017-02-06] MEDS ORDERED: SODIUM CHLOR 0.9% 250 ML INJ 250 ML IV ONE (10:53)
[2017-02-06] MEDS ORDERED: NORMOSOL R INJ 1,000 ML IV ONE (10:53)
[2017-02-06] MEDS: METOCLOPRAMIDE HCL 10 MG/2 ML VIAL IV PUSH SCH ×3 (11:00→20:15)
[2017-02-06] MEDS ORDERED: fentaNYL CITRATE 1000 MCG/20 ML VIAL ONE (11:15)
[2017-02-06] MEDS ORDERED: MIDAZOLAM HCL 5 MG/5 ML VIAL ONE ×2 (11:15)
--- NOTE | 2017-02-06 11:57 | RADRPT ---
EXAM DATE/TIME: 02/06/2017 11:24 [facility] COMPARISON: CHEST PA & LAT, February 03, 2017, 18:25. INDICATIONS : Post CABG MEDICAL HISTORY : Cardiovascular disease. SURGICAL HISTORY : CABG. ENCOUNTER: Subsequent ACUITY: 1 day PAIN SCORE: Non-responsive. LOCATION: Bilateral chest FINDINGS: Portable AP view of the chest demonstrates a normal-sized cardiac silhouette in this patient post med dominic sternotomy. ETT distal tip measures 2.9 cm from the june, NG tube courses beyond the GE junctio n, and left subclavian central line distal tip is in the superior vena cava. There is a mediastinal d rain and left chest tube present and no pneumothorax is visualized. There is mild atelectasis at the lung bases. CONCLUSION: Expected findings are present following recent median sternotomy and CABG. No pneumothorax or acute a bnormality is identified. Dc Ayala MD on February 06, 2017 at 11:54 Board Certified Radiologist. This report was verified electronically.
[2017-02-06] MEDS: AMIODARONE 200 MG TAB PO SCH ×2 (14:00→20:15)
[2017-02-06] MEDS: POTASSIUM CHLOR 20 MEQ PREMIX 100 ML IV PRN ×2 (14:14→14:15)
--- NOTE | 2017-02-06 14:57 | HHI.PR ---
Subjective Remarks Status post CABG. Patient seen postoperatively. He reports doing ok except for dull ache at the sternotomy site. No shortness of breath. Objective Vitals Vital Signs Date Time Temp Pulse Resp B/P Pulse Ox O2 Delivery O2 Flow Rate FiO2 02/06/17 13:23 99 Nasal Cannula 2.00 02/06/17 13:23 99 Nasal Cannula 2 02/06/17 13:20 40 02/06/17 12:00 40 02/06/17 11:40 98.2 68 8 101/57 97 116/62 02/06/17 11:25 64 12 88/49 97 107/48 02/06/17 11:25 40 02/06/17 11:25 97 Mechanical Ventilator 40 02/06/17 11:15 97 40 02/06/17 11:07 97.7 66 12 88/49 97 87/41 02/06/17 11:00 97.7 65 23 101/43 100 02/06/17 11:00 65 02/06/17 11:00 97 Mechanical Ventilator 50 02/06/17 11:00 50 02/06/17 06:00 67 02/06/17 05:00 75 02/06/17 04:00 76 02/06/17 04:00 98.4 76 18 115/65 96 02/06/17 02:00 68 02/06/17 00:00 98.4 68 18 140/57 95 02/06/17 00:00 68 02/05/17 22:00 67 02/05/17 20:00 98.0 75 20 147/78 97 02/05/17 20:00 75 02/05/17 18:00 68 02/05/17 17:00 70 02/05/17 15:00 68 02/05/17 15:00 98.9 68 18 139/76 98 I/O 02/05/17 02/05/17 02/05/17 02/06/17 02/06/17 02/06/17 07:00 15:00 23:00 07:00 15:00 23:00 Intake Total 770 ml 50 ml 472 ml Output Total 500 ml 232 ml Balance 270 ml 50 ml 240 ml Intake Oral 480 ml 240 ml IV Total 290 ml 50 ml 232 ml Output Urine Total 500 ml 232 ml # Bowel Movements 0 0 Result Diagram: 02/06/17 0550 02/05/1717 Objective Remarks GENERAL: This is a well-nourished, well-developed patient, in no apparent distress. CARDIOVASCULAR: S/P sternotomy. Normal rate and regular rhythm without murmurs, gallops, or rubs. RESPIRATORY: Good respiratory efforts. Breath sounds equal and clear to auscultation bilaterally. GASTROINTESTINAL: Abdomen soft, non-tender, non-distended. Normal active bowel sounds MUSCULOSKELETAL: Extremities without cyanosis, or edema. PSYCH: Appropriate mood and affect. A/P Assessment and Plan 81/ male transfer from [facility] for chest pain , unstable angina , underwent cardiac cath by Dr Tony Saxena/ found to have 3 vessel coronary disease CAD/Non-ST elevation MIstatus post coronary angiogram on February 02, 2017 at [facility] in [facility]. Found significant 3 vessel disease per patient' s report. - CT surgery following. S/P CABG. Stable post op. - Post op plan per CT surgery. On Amiodarone, aspirin, Lipitor 2-D echo showed mild ventricular hypertrophy and grade 1 diastolic dysfunction , otherwise unremarkable. Hypertension -Controlled. monitor. Diabetes - Sliding scale insulin with Accu-Cheks. - Hemoglobin A1c 6.3 GI prophylaxis: Stool softener PRN constipation. DVT PPx: on Heparin Vaihsali Saldivar MD Feb 06, 2017 14:57
[2017-02-06] MEDS: RESP: ALBUTEROL 2.5 MG/IPRATROPIUM 0.5 MG NEB (SCH) NEB ×2 (16:00→21:09)
--- NOTE | 2017-02-06 16:10 | HHI.FF ---
Face to Face Verification Diagnosis: (1) Unstable angina (2) Coronary artery disease (3) Diabetes mellitus (4) Hyperlipemia (5) History of BPH Physical Therapy Order: Evaluate and Treat Home Health Nursing Order: Signs/symptoms of disease process Medication education-adverse effect Wound care and dressing changes Nursing assessment with vital signs Instructions: Heart and Vascular Surgery patients *Special attention to sternal dressing Mandatory frequency Assess and evaluation, 4 days in a row The next week 3X week 2 times a week for 4 weeks 1 time a week for 5 weeks Schedule Heart and Vascular patients for full 60 day certification period Initial visit Review Open Heart Surgery Discharge Instructions (Sternal precautions, Activity, Elastic hose, Incision care, Driving, Incentive spirometry, Smoking, [place], Work and other) Need Betadine to paint incision Medication reconciliation Importance of follow up care/ check on appointments Make calendar record temperature daily When to call [facility] nurse, review instructions, phone list Incentive Spirometry, demonstration Visit 1- Begin discharge instruction for patient family and/ or caregiver using teach back method- Signs and symptoms of infection Disease characteristics Medicines and side effects Foods and nutrition/ appetite Infection control/ hand washing/ hygiene Visit 2- Continue teaching Discharge instructions- include additional information on smoking cessation , sternal dressing (sternal vac) Visit 3- Continue teaching- Cough and deep breathing, incision monitoring. Choose my plate Visit 4- Continue teaching- Discuss limitations Discuss how they are feeling Discuss progress toward goals Remaining visits- continue teaching and monitoring PREVENA Single Use Negative Wound Therapy System Caregiver Instruction Sheet 1. A Prevena dressing system was applied to the chest incision during surgery , to promote wound healing. It works via a suction device (negative pressure wound therapy) to remove low to moderate levels of exudate (drainage) and infectious materials. We recommend that the device stay in place for up to seven days, from day of surgery. 2. Day of Surgery____7/ Day of Removal ___/ 3. The dressing should only be removed by a health urgent care. Please arrange removal of device to coincide with Home Health visit and or with Nursing staff at Rehab 4. If skin reddening or irritation of skin occurs, or excessive drainage, please notify the Cardiovascular Surgeons office at [phone]. 5. Light showering is permissible; however the pump should be disconnected and placed in safe location, where it will not get wet. The dressing should not be exposed to direct spray or submerged in water. No bath tub / shower only. Ensure the end of the tubing attached to the dressing is facing down so that water does not enter the top of the tube. 6. To remove Prevena dressing: press purple button to turn off device / remove the suction. Then disconnect the tubing from the pump. The fixation strips should be stretched away from the skin and the dressing lifted at one corner and peeled back until it has been fully removed. 7. After removal, it is ok to shower daily using liquid dial soap and clean wash cloth, rinse and pat dry, and leave incision open to air dry. For any concerns regarding Prevena dressing, and or wounds, please contact Deanna Zhang, patient navigator at [phone] or notify the Cardiovascular Surgeons office at [phone]. Incentive spirometry Q1 hr x 10, while awake, also use acapella device hourly whole awake Sternal Breast Bone Precautions: NO pushing or pulling, ( pt must use sternal pillow to support chest with all activities and with coughing ( takes up to 3 months breast bone to heal ) All females to wear sternal bra , launder as needed Daily incision care: ok to shower daily, no tub bath. Wash all incisions with liquid dial soap, clean wash cloth to each site, rinse and pat dry. Observe for any signs of infection, such as drainage which is dark yellow, petty, green or foul smelling. Immediately report to the surgeon any drainage from the chest incision, or legs, and for any abnormal drainage from the chest tube sites. Notify surgeon if any temp >101.5 degrees F. When specialty dressing removed/ or if you do not have one, continue to shower daily as above, then rinse and pat incision dry and paint with betadine daily x 5 days. Allow steri strips to fall off if you have any. Avoid lotions, creams, salves, oils, etc. for the first month Please see attached forms for additional instructions regarding post Open Heart specialty wound vacuum dressings. SHANTELLE or Prevena , Dressing to be removed by Nursing staff on ___02/13/17____ For Dr. Grace patients , please obtain CBC, BMP, PA & Lat CXR in 2 weeks, results to Dr. Grace ( prescription will be given) ( ) (Tele: [phone]) , F/U appointment: as per DC instructions: PCP in 2 weeks, CV surgeon 2 weeks, Seed Cleaner 3-4 weeks For any questions regarding incisions/ dressing / meds / post op care or above Symptoms, Thursday 8am-5pm Heart & Vascular Surgery Office ( Dr. Moulton & Dr. Grace), After Hours / Nights (5pm -8am) Weekends and Holidays Please call [facility] Card[facility] Unit (C[facility]) Charge Nurse I have seen patient Jatin Mckinney on 02/06/17. My clinical findings support the need for the requested home health care services because: Deconditioned w/ increased weakness I certify that my clinical findings support that this patient is homebound because: Post-op weakness Rupa Sevilla Feb 06, 2017 16:10
[2017-02-06] MEDS: ATORVASTATIN 10 MG TAB PO SCH (20:15)
[2017-02-06] MEDS: oxyCODONE/ACETAMINOPHEN 5 MG/325 MG TAB PO PRN ×2 (20:15→23:27)
[2017-02-07] VITALS (11 sets, daily range): BP systolic 116–142; BP diastolic 55–71; PULSE 68–92; RESP 12–18; TEMP 98.4–99.8; O2SAT 94–97
[2017-02-07] MEDS: ACETAMINOPHEN 1000 MG/100 ML VIAL IV SCH ×4 (03:00→23:23)
[2017-02-07] MEDS: oxyCODONE/ACETAMINOPHEN 5 MG/325 MG TAB PO PRN ×5 (04:03→21:52)
[2017-02-07] MEDS: RESP: ALBUTEROL 2.5 MG/IPRATROPIUM 0.5 MG NEB (SCH) NEB ×3 (04:37→19:05)
[2017-02-07 05:03] LABS: HEMATOCRIT 32.3 % (39.0-51.0); MEAN CELL VOLUME 94.3 FL (80.0-100.0); MEAN CORPUSCULAR HEMOGLOBIN 31.6 PG (27.0-34.0); MEAN CORPUSCULAR HGB CONC 33.5 % (32.0-36.0); PLATELET COUNT 243 TH/MM3 (150-450); RED BLOOD COUNT 3.42 MIL/MM3 (4.50-5.90); RED CELL DISTRIBUTION WIDTH 13.5 % (11.6-17.2); REVIEW FLAG FINAL; WHITE BLOOD COUNT 22.6 TH/MM3 (4.0-11.0)
[2017-02-07 05:18] LABS: BICARBONATE 22.3 MEQ/L (21.0-32.0); MAGNESIUM 2.3 MG/DL (1.5-2.5); POTASSIUM 4.1 MEQ/L (3.5-5.1)
--- NOTE | 2017-02-07 06:15 | RADRPT ---
EXAM DATE/TIME: 02/07/2017 04:07 [facility] COMPARISON: CHEST SINGLE AP, February 06, 2017, 11:24. INDICATIONS : Evaluate right side chest tube, post CABG MEDICAL HISTORY : Cardiovascular disease. SURGICAL HISTORY : CABG. ENCOUNTER: Initial ACUITY: 1 day PAIN SCORE: 8/10 LOCATION: Bilateral chest FINDINGS: There has been interval extubation and removal of nasogastric tube. Left thoracostomy tubes and left subclavian central line are unchanged. A I do not see a right-sided chest tube. There is mild perihil ar interstitial prominence and slight parenchymal opacity at the left lung base, similar to prior. Ca rdiomediastinal contours are stable. CONCLUSION: Interval extubation. Otherwise little change. Dc Hinson MD on February 07, 2017 at 6:12 Board Certified Radiologist. This report was verified electronically.
[2017-02-07] MEDS: AMIODARONE 200 MG TAB PO SCH ×3 (06:38→23:24)
[2017-02-07] MEDS: PANTOPRAZOLE SOD 40 MG DELAYED RELEASE TAB PO SCH (06:38)
[2017-02-07] MEDS: INSULIN ASPART SUPPLEMENTAL SCALE SQ SCH ×5 (07:00→22:00)
[2017-02-07] MEDS: POLYETHYLENE GLYCOL 17 GM PKG PO SCH (07:29)
[2017-02-07] MEDS: METOCLOPRAMIDE HCL 10 MG/2 ML VIAL IV PUSH SCH ×4 (07:43→20:25)
--- NOTE | 2017-02-07 08:29 | PD.CAR.PN ---
CVT Progress Note CVT: POD #: 1 Subjective/Hospital Course: 81/ male transfer from [facility] , chest pain , unstable angina , underwent cardiac cath by Dr Tony Saxena/ found to have 3 vessel coronary disease, Cath films reviewed by Dr Grace plan is to get cath report from transfer facility, and schedule for CABG on Thursday , 2-D echo pending for EF and eval for any valvular disease PMH: CAD, DM, BPH, kidney stones, basal ca of the nose ( removal ) 02/04 pt is pain free, on room air, CXR noted interstitial edema / dose of lasix given PFT pending for surgery on monday 02/05 for surgery in am pt pain free 02/06/17 No complaints Objective: Vital Signs Date Time Temp Pulse Resp B/P Pulse Ox O2 Delivery O2 Flow Rate FiO2 02/07/17 08:00 99.1 81 16 142/56 94 120/56 02/07/17 07:00 78 02/07/17 03:00 69 02/07/17 03:00 95 Nasal Cannula 2.00 02/07/17 03:00 99.8 81 12 127/64 94 135/55 02/06/17 23:00 77 02/06/17 23:00 94 Nasal Cannula 2.00 02/06/17 23:00 99.3 82 16 117/64 94 139/55 02/06/17 21:11 94 Nasal Cannula 1.00 02/06/17 19:00 98.2 85 12 113/63 99 139/59 02/06/17 19:00 80 02/06/17 19:00 94 Nasal Cannula 2.00 02/06/17 16:59 18 02/06/17 15:45 16 02/06/17 15:00 97.8 68 14 117/64 97 126/60 02/06/17 15:00 80 02/06/17 15:00 97 Nasal Cannula 2.00 02/06/17 13:23 99 Nasal Cannula 2.00 02/06/17 13:23 99 Nasal Cannula 2 02/06/17 13:21 97 Nasal Cannula 2.00 02/06/17 13:20 Mechanical Ventilator 02/06/17 13:20 40 02/06/17 12:00 40 02/06/17 11:40 98.2 68 8 101/57 97 116/62 02/06/17 11:25 64 12 88/49 97 107/48 02/06/17 11:25 40 02/06/17 11:25 97 Mechanical Ventilator 40 02/06/17 11:15 97 40 02/06/17 11:07 97.7 66 12 88/49 97 87/41 02/06/17 11:00 97.7 65 23 101/43 100 02/06/17 11:00 65 02/06/17 11:00 97 Mechanical Ventilator 50 02/06/17 11:00 50 Labs: Laboratory Tests Test 02/07/17 04:30 White Blood Count 22.6 TH/MM3 (4.0-11.0) Red Blood Count 3.42 MIL/MM3 (4.50-5.90) Hemoglobin 10.8 GM/DL (13.0-17.0) Hematocrit 32.3 % (39.0-51.0) Mean Corpuscular Volume 94.3 FL (80.0-100.0) Mean Corpuscular Hemoglobin 31.6 PG (27.0-34.0) Mean Corpuscular Hemoglobin 33.5 % Concent (32.0-36.0) Red Cell Distribution Width 13.5 % (11.6-17.2) Platelet Count 243 TH/MM3 (150-450) Mean Platelet Volume 7.8 FL (7.0-11.0) Sodium Level 138 MEQ/L (136-145) Potassium Level 4.1 MEQ/L (3.5-5.1) Chloride Level 106 MEQ/L (98-107) Carbon Dioxide Level 22.3 MEQ/L (21.0-32.0) Anion Gap 10 MEQ/L (5-15) Blood Urea Nitrogen 16 MG/DL (7-18) Creatinine 0.59 MG/DL (0.60-1.30) Estimat Glomerular Filtration 132 ML/MIN Rate (>89) Random Glucose 128 MG/DL (74-106) Calcium Level 7.8 MG/DL (8.5-10.1) Magnesium Level 2.3 MG/DL (1.5-2.5) Result Diagram: 02/07/17 0430 02/07/17 0430 Imaging: Last 24 hours Impressions Chest X-Ray 02/07/17 0500 Signed Impressions: Service Date/Time: Tuesday, February 07, 2017 04:07 - CONCLUSION: Interval extubation. Otherwise little change. Dc Hinson MD Cardiovascular: RRR Pulmonary: CTA GI/: NABS Incision: dry and intact CT: 180ml/12 hrs Plan: Transfer to stepdown Beta treri and ASA Statin Encourage ambulation, up to chair Advance diet Cont. chest tubes (1) Unstable angina Plan: ASA, statin BB for surgery on thursday (2) Coronary artery disease (3) Diabetes mellitus Plan: insulin sliding scale / HGB A1C pending diabetic diet (4) Hyperlipemia Plan: statin (5) History of BPH Terrie Grace MD Feb 07, 2017 08:29
[2017-02-07] MEDS ORDERED: GLUCAGON 1 MG/ML VIAL OTHER PRN (08:30)
[2017-02-07] MEDS ORDERED: SOD PHOSPHATE/SOD BIPHOSPHATE (ADULT) ENEMA 133ML RECTAL PRN (08:30)
[2017-02-07] MEDS ORDERED: DEXTROSE 50% IN WATER 50 ML VIAL(D50) IV PRN (08:30)
[2017-02-07] MEDS ORDERED: BISACODYL 10 MG SUPP RECTAL PRN (08:30)
[2017-02-07] MEDS ORDERED: METOPROLOL TARTRATE 25 MG TAB PO SCH (09:00)
[2017-02-07] MEDS: ASPIRIN EC 81 MG TABEC PO SCH (09:25)
[2017-02-07] MEDS: MULTIVITAMINS/MINERALS THERAPEUTIC TAB PO SCH (09:26)
[2017-02-07] MEDS: MAGNESIUM HYDROXIDE SUSP 30 ML CUP PO SCH (09:26)
[2017-02-07] MEDS: FUROSEMIDE 40 MG/4 ML VIAL IV PUSH SCH (09:26)
[2017-02-07] MEDS: SODIUM CHLORIDE 0.9% FLUSH 10 ML FLUSH IV FLUSH SCH ×2 (09:26→23:23)
--- NOTE | 2017-02-07 13:48 | HHI.PR ---
Subjective Remarks Patient reports feeling ok except for chest discomfort at the sternotomy. No shortness of breath. Objective Vitals Vital Signs Date Time Temp Pulse Resp B/P Pulse Ox O2 Delivery O2 Flow Rate FiO2 02/07/17 12:00 98.6 71 18 116/60 94 Arterial Line 02/07/17 11:34 95 Nasal Cannula 1.00 02/07/17 11:00 68 02/07/17 08:42 18 02/07/17 08:00 99.1 81 16 142/56 94 120/56 02/07/17 08:00 95 Nasal Cannula 1.00 02/07/17 07:00 78 02/07/17 03:00 69 02/07/17 03:00 95 Nasal Cannula 2.00 02/07/17 03:00 99.8 81 12 127/64 94 135/55 02/06/17 23:00 77 02/06/17 23:00 94 Nasal Cannula 2.00 02/06/17 23:00 99.3 82 16 117/64 94 139/55 02/06/17 21:11 94 Nasal Cannula 1.00 02/06/17 19:00 98.2 85 12 113/63 99 139/59 02/06/17 19:00 80 02/06/17 19:00 94 Nasal Cannula 2.00 02/06/17 16:59 18 02/06/17 15:45 16 02/06/17 15:00 97.8 68 14 117/64 97 126/60 02/06/17 15:00 80 02/06/17 15:00 97 Nasal Cannula 2.00 02/06/17 13:23 99 Nasal Cannula 2.00 02/06/17 13:23 99 Nasal Cannula 2 I/O 02/06/17 02/06/17 02/06/17 02/07/17 02/07/17 02/07/17 06:59 14:59 22:59 06:59 14:59 22:59 Intake Total 472 ml 1787 ml 1592 ml Output Total 232 ml 1080 ml 860 ml Balance 240 ml 707 ml 732 ml Intake Oral 240 ml 960 ml IV Total 232 ml 1787 ml 632 ml Output Urine Total 232 ml 760 ml 680 ml Gastric Drainage Total 150 ml Chest Tube Drainage Total 170 ml 180 ml # Bowel Movements 0 0 0 Result Diagram: 02/07/1742902/07/17429 Objective Remarks GENERAL: This is a well-nourished, well-developed patient, in no apparent distress. CARDIOVASCULAR: S/P sternotomy. Normal rate and regular rhythm without murmurs, gallops, or rubs. RESPIRATORY: Good respiratory efforts. Breath sounds equal and clear to auscultation bilaterally. GASTROINTESTINAL: Abdomen soft, non-tender, non-distended. Normal active bowel sounds MUSCULOSKELETAL: Extremities without cyanosis, or edema. PSYCH: Appropriate mood and affect. A/P Assessment and Plan 81 Y/O male transfer from [facility] for chest pain , unstable angina , underwent cardiac cath by Dr Tony Saxena/ found to have 3 vessel coronary disease CAD/Non-ST elevation MIstatus post coronary angiogram on February 02, 2017 at [facility] in [facility]. Found significant 3 vessel disease per patient' s report. - CT surgery following. S/P CABG. Stable post op. - Post op plan per CT surgery. On Amiodarone, aspirin, Lipitor - 2-D echo showed mild ventricular hypertrophy and grade 1 diastolic dysfunction , otherwise unremarkable. - Pain control. Hypertension -Controlled. monitor. Diabetes - Sliding scale insulin with Accu-Cheks. - Hemoglobin A1c 6.3 GI prophylaxis: Stool softener PRN constipation. DVT PPx: on Heparin Vaishali Saldivar MD Feb 07, 2017 13:48
[2017-02-07] MEDS: ATORVASTATIN 10 MG TAB PO SCH (20:26)
[2017-02-07] MEDS: SENNOSIDES 8.6 MG TAB PO SCH (20:26)
[2017-02-07] MEDS: DOCUSATE SODIUM 100 MG CAP PO SCH (20:26)
[2017-02-08] VITALS (22 sets, daily range): BP systolic 111–149; BP diastolic 65–83; PULSE 64–88; RESP 18–20; TEMP 98–98.9; O2SAT 93–99
[2017-02-08] MEDS: oxyCODONE/ACETAMINOPHEN 5 MG/325 MG TAB PO PRN ×5 (02:29→23:55)
[2017-02-08] MEDS: INSULIN ASPART SUPPLEMENTAL SCALE SQ SCH ×4 (02:51→21:31)
[2017-02-08] MEDS: PANTOPRAZOLE SOD 40 MG DELAYED RELEASE TAB PO SCH (05:19)
[2017-02-08] MEDS: METOCLOPRAMIDE HCL 10 MG/2 ML VIAL IV PUSH SCH ×4 (05:21→21:00)
[2017-02-08] MEDS: AMIODARONE 200 MG TAB PO SCH ×3 (05:21→21:23)
[2017-02-08] MEDS: ACETAMINOPHEN 1000 MG/100 ML VIAL IV SCH ×4 (05:22→21:18)
[2017-02-08 05:58] LABS: AUTOMATED NEUTROPHIL # 16.7 TH/MM3 (1.8-7.7); BASOPHIL # 0.1 TH/MM3 (0-0.2); BASOPHIL % 0.4 % (0.0-2.0); EOSINOPHIL # 0.1 TH/MM3 (0-0.4); EOSINOPHIL % 0.3 % (0.0-4.0); HEMATOCRIT 31.1 % (39.0-51.0); HEMO FLAGS DIFF FINAL; LYMPH % 9.7 % (9.0-44.0); MEAN CELL VOLUME 94.5 FL (80.0-100.0); MEAN CORPUSCULAR HEMOGLOBIN 31.6 PG (27.0-34.0); MEAN CORPUSCULAR HGB CONC 33.4 % (32.0-36.0); MONO % 9.8 % (0.0-8.0); NEUT % 79.8 % (16.0-70.0); PLATELET COUNT 248 TH/MM3 (150-450); RED BLOOD COUNT 3.29 MIL/MM3 (4.50-5.90); RED CELL DISTRIBUTION WIDTH 13.6 % (11.6-17.2)
[2017-02-08 06:25] LABS: BICARBONATE 27.6 MEQ/L (21.0-32.0); MAGNESIUM 2.6 MG/DL (1.5-2.5)
[2017-02-08] MEDS: RESP: ALBUTEROL 2.5 MG/IPRATROPIUM 0.5 MG NEB (SCH) NEB ×2 (08:00→12:12)
[2017-02-08] MEDS ORDERED: PILL SPLITTER OTHER PRN ×2 (09:00→11:45)
[2017-02-08] MEDS ORDERED: METOPROLOL TARTRATE 25 MG TAB PO SCH (09:00)
[2017-02-08] MEDS: SODIUM CHLORIDE 0.9% FLUSH 10 ML FLUSH IV FLUSH SCH ×2 (09:09→21:00)
[2017-02-08] MEDS: ASPIRIN EC 81 MG TABEC PO SCH (09:11)
[2017-02-08] MEDS: DOCUSATE SODIUM 100 MG CAP PO SCH ×2 (09:11→21:22)
[2017-02-08] MEDS: FUROSEMIDE 40 MG/4 ML VIAL IV PUSH SCH ×2 (09:11→16:56)
[2017-02-08] MEDS: MULTIVITAMINS/MINERALS THERAPEUTIC TAB PO SCH (09:12)
[2017-02-08] MEDS: MAGNESIUM HYDROXIDE SUSP 30 ML CUP PO SCH (09:13)
[2017-02-08] MEDS: POLYETHYLENE GLYCOL 17 GM PKG PO SCH (09:14)
--- NOTE | 2017-02-08 12:03 | PD.CAR.PN ---
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 ) 02/04 pt is pain free, on room air, CXR noted interstitial edema / dose of lasix given PFT pending for surgery on monday 02/05 for surgery in am pt pain free 02/07/17 No complaints 02/08/17 doing well, no complaints Objective: Vital Signs Date Time Temp Pulse Resp B/P Pulse Ox O2 Delivery O2 Flow Rate FiO2 02/08/17 11:16 98.5 80 20 111/66 93 02/08/17 10:00 84 02/08/17 09:00 80 02/08/17 08:40 98.6 78 18 142/76 96 02/08/17 08:00 96 Room Air 02/08/17 08:00 78 02/08/17 07:15 99 Nasal Cannula 2.00 02/08/17 07:00 78 02/08/17 07:00 74 02/08/17 05:35 98.7 84 20 149/83 95 02/08/17 04:34 95 Nasal Cannula 2.00 02/07/17 23:59 98.7 84 18 122/71 96 02/07/17 23:57 95 Nasal Cannula 2.00 02/07/17 20:34 97 Nasal Cannula 2.00 02/07/17 20:32 98.7 92 18 127/71 97 02/07/17 19:05 96 Nasal Cannula 2.00 02/07/17 15:13 95 Nasal Cannula 2.00 02/07/17 15:10 98.4 92 18 120/62 94 02/07/17 15:10 95 Nasal Cannula 1.00 02/07/17 15:00 81 02/07/17 13:43 18 02/07/17 12:00 98.6 71 18 116/60 94 Arterial Line Labs: Laboratory Tests Test 02/08/17 05:00 White Blood Count 21.0 TH/MM3 (4.0-11.0) Red Blood Count 3.29 MIL/MM3 (4.50-5.90) Hemoglobin 10.4 GM/DL (13.0-17.0) Hematocrit 31.1 % (39.0-51.0) Mean Corpuscular Volume 94.5 FL (80.0-100.0) Mean Corpuscular Hemoglobin 31.6 PG (27.0-34.0) Mean Corpuscular Hemoglobin 33.4 % Concent (32.0-36.0) Red Cell Distribution Width 13.6 % (11.6-17.2) Platelet Count 248 TH/MM3 (150-450) Mean Platelet Volume 7.7 FL (7.0-11.0) Neutrophils (%) (Auto) 79.8 % (16.0-70.0) Lymphocytes (%) (Auto) 9.7 % (9.0-44.0) Monocytes (%) (Auto) 9.8 % (0.0-8.0) Eosinophils (%) (Auto) 0.3 % (0.0-4.0) Basophils (%) (Auto) 0.4 % (0.0-2.0) Neutrophils # (Auto) 16.7 TH/MM3 (1.8-7.7) Lymphocytes # (Auto) 2.0 TH/MM3 (1.0-4.8) Monocytes # (Auto) 2.1 TH/MM3 (0-0.9) Eosinophils # (Auto) 0.1 TH/MM3 (0-0.4) Basophils # (Auto) 0.1 TH/MM3 (0-0.2) CBC Comment DIFF FINAL Differential Comment Sodium Level 137 MEQ/L (136-145) Potassium Level 4.0 MEQ/L (3.5-5.1) Chloride Level 102 MEQ/L (98-107) Carbon Dioxide Level 27.6 MEQ/L (21.0-32.0) Anion Gap 7 MEQ/L (5-15) Blood Urea Nitrogen 18 MG/DL (7-18) Creatinine 0.75 MG/DL (0.60-1.30) Estimat Glomerular Filtration 100 ML/MIN Rate (>89) Random Glucose 111 MG/DL (74-106) Calcium Level 8.3 MG/DL (8.5-10.1) Magnesium Level 2.6 MG/DL (1.5-2.5) Result Diagram: 02/08/17 0500 02/08/17 0500 Cardiovascular: RRR Telemetry: NSR Pulmonary: CTA GI/: NABS, NT Incision: dry and intact CT: ~60ml/12 hrs Plan: D/C chest tubes Encourage ambulation Diurese Stim BM BB, statin, ASA (1) Unstable angina Plan: ASA, statin BB for surgery on thursday (2) Coronary artery disease (3) Diabetes mellitus Plan: insulin sliding scale / HGB A1C pending diabetic diet (4) Hyperlipemia Plan: statin (5) History of BPH Terrie Grace MD Feb 08, 2017 12:03
--- NOTE | 2017-02-08 15:08 | HHI.PR ---
Subjective Remarks Patient reports is feeling okay. Pain is controlled. He is ambulating. Objective Vitals Vital Signs Date Time Temp Pulse Resp B/P Pulse Ox O2 Delivery O2 Flow Rate FiO2 02/08/17 13:06 70 02/08/17 12:00 74 02/08/17 11:16 98.5 80 20 111/66 93 02/08/17 11:00 94 Room Air 02/08/17 11:00 74 02/08/17 10:00 84 02/08/17 09:00 80 02/08/17 08:40 98.6 78 18 142/76 96 02/08/17 08:00 96 Room Air 02/08/17 08:00 78 02/08/17 07:15 99 Nasal Cannula 2.00 02/08/17 07:00 78 02/08/17 07:00 74 02/08/17 05:35 98.7 84 20 149/83 95 02/08/17 04:34 95 Nasal Cannula 2.00 02/07/17 23:59 98.7 84 18 122/71 96 02/07/17 23:57 95 Nasal Cannula 2.00 02/07/17 20:34 97 Nasal Cannula 2.00 02/07/17 20:32 98.7 92 18 127/71 97 02/07/17 19:05 96 Nasal Cannula 2.00 02/07/17 15:13 95 Nasal Cannula 2.00 02/07/17 15:10 98.4 92 18 120/62 94 02/07/17 15:10 95 Nasal Cannula 1.00 I/O 02/07/17 02/07/17 02/07/17 02/08/17 02/08/17 02/08/17 06:59 14:59 22:59 06:59 14:59 22:59 Intake Total 1592 ml 1440 ml 480 ml Output Total 860 ml 1210 ml 330 ml Balance 732 ml 230 ml 150 ml Intake Oral 960 ml 940 ml 480 ml IV Total 632 ml 500 ml Output Urine Total 680 ml 1030 ml 330 ml Chest Tube Drainage Total 180 ml 180 ml # Bowel Movements 0 0 0 Result Diagram: 02/08/17 0500 02/08/17 0500 Objective Remarks GENERAL: This is a well-nourished, well-developed patient, in no apparent distress. CARDIOVASCULAR: S/P sternotomy. Normal rate and regular rhythm without murmurs, gallops, or rubs. RESPIRATORY: Good respiratory efforts. Breath sounds equal and clear to auscultation bilaterally. GASTROINTESTINAL: Abdomen soft, non-tender, non-distended. Normal active bowel sounds MUSCULOSKELETAL: Extremities without cyanosis, or edema. PSYCH: Appropriate mood and affect. A/P Assessment and Plan 81 Y/O male transfer from [facility] for chest pain , unstable angina , underwent cardiac cath by Dr Tony Saxena/ found to have 3 vessel coronary disease CAD/Non-ST elevation MIstatus post coronary angiogram on February 02, 2017 at [facility]. Found significant 3 vessel disease per patient' s report. - CT surgery following. S/P CABG. Stable post op. - Post op plan per CT surgery. On Amiodarone, aspirin, Lipitor, metoprolol - 2-D echo showed mild ventricular hypertrophy and grade 1 diastolic dysfunction , otherwise unremarkable. - Pain control. Hypertension -Controlled. monitor. Diabetes - Sliding scale insulin with Accu-Cheks. - Hemoglobin A1c 6.3 Leukocytosis: Likely reactive from stress. Monitor. GI prophylaxis: Stool softener PRN constipation. DVT PPx: on Heparin Vaishali Saldivar MD Feb 08, 2017 15:08
--- NOTE | 2017-02-08 18:28 | EKG ---
Date Performed: 02/07/2017 Time Performed: 04:04:46 PTAGE: 81 years EKG: Sinus rhythm Short ND interval rSr'(V1) - probable normal variant Inferior infarct - age undetermined Abnormal EC G PREVIOUS TRACING : 02/04/2017 05.10 Compared to prior tracing no significant change DOCTOR: Jarrod Stewart Interpretating Date/Time 02/08/2017 18:26:49
[2017-02-08] MEDS: SENNOSIDES 8.6 MG TAB PO SCH (21:21)
[2017-02-08] MEDS: ATORVASTATIN 10 MG TAB PO SCH (21:22)
[2017-02-08] MEDS: METOPROLOL TARTRATE 25 MG TAB PO SCH (21:22)
[2017-02-09] VITALS (14 sets, daily range): BP systolic 100–115; BP diastolic 56–66; PULSE 63–76; RESP 18; TEMP 97.8–98; O2SAT 94–96
[2017-02-09] MEDS: oxyCODONE/ACETAMINOPHEN 5 MG/325 MG TAB PO PRN ×3 (03:14→13:26)
[2017-02-09] MEDS: ACETAMINOPHEN 1000 MG/100 ML VIAL IV SCH ×2 (04:49→08:37)
[2017-02-09] MEDS: PANTOPRAZOLE SOD 40 MG DELAYED RELEASE TAB PO SCH (06:18)
[2017-02-09] MEDS: AMIODARONE 200 MG TAB PO SCH ×2 (06:18→13:25)
[2017-02-09] MEDS: METOCLOPRAMIDE HCL 10 MG/2 ML VIAL IV PUSH SCH ×2 (06:19→11:38)
[2017-02-09] MEDS: INSULIN ASPART SUPPLEMENTAL SCALE SQ SCH ×2 (06:34→11:39)
[2017-02-09 07:11] LABS: MEAN CELL VOLUME 93.3 FL (80.0-100.0); MEAN CORPUSCULAR HEMOGLOBIN 31.6 PG (27.0-34.0); MEAN CORPUSCULAR HGB CONC 33.9 % (32.0-36.0); PLATELET COUNT 253 TH/MM3 (150-450); RED CELL DISTRIBUTION WIDTH 13.5 % (11.6-17.2); REVIEW FLAG FINAL; WHITE BLOOD COUNT 16.3 TH/MM3 (4.0-11.0)
[2017-02-09 07:35] LABS: BICARBONATE 26.8 MEQ/L (21.0-32.0); POTASSIUM 3.9 MEQ/L (3.5-5.1)
[2017-02-09] MEDS: RESP: ALBUTEROL 2.5 MG/IPRATROPIUM 0.5 MG NEB (SCH) NEB ×2 (07:40→10:57)
[2017-02-09] MEDS: DOCUSATE SODIUM 100 MG CAP PO SCH (08:19)
[2017-02-09] MEDS: FUROSEMIDE 40 MG/4 ML VIAL IV PUSH SCH (08:20)
[2017-02-09] MEDS: MAGNESIUM HYDROXIDE SUSP 30 ML CUP PO SCH (08:20)
[2017-02-09] MEDS: POLYETHYLENE GLYCOL 17 GM PKG PO SCH (08:20)
[2017-02-09] MEDS: METOPROLOL TARTRATE 25 MG TAB PO SCH (08:20)
[2017-02-09] MEDS: ASPIRIN EC 81 MG TABEC PO SCH (08:20)
[2017-02-09] MEDS: MULTIVITAMINS/MINERALS THERAPEUTIC TAB PO SCH (08:20)
[2017-02-09] MEDS: SODIUM CHLORIDE 0.9% FLUSH 10 ML FLUSH IV FLUSH SCH (08:21)
--- NOTE | 2017-02-09 10:21 | HHI.PR ---
Subjective Remarks Patient reports he is feeling much better. Breathing much more comfortable, chest pain at the sternotomy site significantly improved. Objective Vitals Vital Signs Date Time Temp Pulse Resp B/P Pulse Ox O2 Delivery O2 Flow Rate FiO2 02/09/17 09:51 66 02/09/17 08:10 68 02/09/17 07:00 69 02/09/17 07:00 97.8 68 18 100/56 96 02/09/17 06:00 69 02/09/17 05:26 18 02/09/17 05:00 64 02/09/17 04:48 18 02/09/17 04:00 66 02/09/17 03:00 97.8 70 18 115/66 96 02/09/17 03:00 66 02/09/17 02:00 70 02/09/17 01:00 64 02/09/17 00:00 76 02/08/17 23:00 98.0 70 18 123/65 96 02/08/17 23:00 64 02/08/17 22:00 70 02/08/17 21:00 78 02/08/17 20:00 78 02/08/17 19:00 96 Room Air 02/08/17 19:00 76 02/08/17 19:00 98.4 78 18 115/69 96 02/08/17 18:00 71 02/08/17 17:17 98.9 76 20 131/73 94 02/08/17 17:00 88 02/08/17 16:00 96 Room Air 02/08/17 16:00 82 02/08/17 15:00 80 02/08/17 14:00 70 02/08/17 13:06 70 02/08/17 12:00 74 02/08/17 11:16 98.5 80 20 111/66 93 02/08/17 11:00 94 Room Air 02/08/17 11:00 74 I/O 02/08/17 02/08/17 02/08/17 02/09/17 02/09/17 02/09/17 07:00 15:00 23:00 07:00 15:00 23:00 Intake Total 480 ml 980 ml 240 ml Output Total 330 ml 1125 ml 1125 ml Balance 150 ml -145 ml -885 ml Intake Oral 480 ml 780 ml 240 ml IV Total 200 ml Output Urine Total 330 ml 1125 ml 1125 ml # Bowel Movements 0 Result Diagram: 02/09/1761902/09/17619 Objective Remarks GENERAL: This is a well-nourished, well-developed patient, in no apparent distress. CARDIOVASCULAR: S/P sternotomy. Normal rate and regular rhythm without murmurs, gallops, or rubs. RESPIRATORY: Good respiratory efforts. Breath sounds equal and clear to auscultation bilaterally. GASTROINTESTINAL: Abdomen soft, non-tender, non-distended. Normal active bowel sounds MUSCULOSKELETAL: Extremities without cyanosis, or edema. PSYCH: Appropriate mood and affect. A/P Assessment and Plan 81 Y/O male transfer from [facility] for chest pain , unstable angina , underwent cardiac cath by Dr Tony Saxena/ found to have 3 vessel coronary disease CAD/Non-ST elevation MIstatus post coronary angiogram on February 02, 2017 at [facility] in [facility]. Found significant 3 vessel disease per patient' s report. - CT surgery following. S/P CABG. Stable post op. - Post op plan per CT surgery. On Amiodarone, aspirin, Lipitor, metoprolol. Postop diuresis with IV Lasix ongoing. - 2-D echo showed mild ventricular hypertrophy and grade 1 diastolic dysfunction , otherwise unremarkable. - Pain control. Hypertension -Controlled. monitor. Diabetes - Sliding scale insulin with Accu-Cheks. - Hemoglobin A1c 6.3 Leukocytosis: Likely reactive from stress. Improving. Monitor. GI prophylaxis: Stool softener PRN constipation. DVT PPx: on Heparin Vaishali Saldivar MD Feb 09, 2017 10:21
--- NOTE | 2017-02-09 12:48 | RSPPFT ---
DATE OF PROCEDURE: 02/04/17 COMMENTS: Spirometry with FVC of 3.0 predicted 3.2, FEV1 of 2.4 predicted 2.2, FEV1/FVC ratio 79% predicted 71%. IMPRESSION: On the basis of the above, patient's spirometry is within the predicted range.
[2017-02-09] MEDS ORDERED: ASPI-99 PO (13:48)
[2017-02-09] MEDS ORDERED: AMIO200T PO (13:48)
[2017-02-09] MEDS ORDERED: METO25TA3 PO (13:48)
[2017-02-09] MEDS ORDERED: THERM PO (13:48)
[2017-02-09] MEDS ORDERED: PANT40TA3 PO (13:48)
[2017-02-09] MEDS ORDERED: OXYC1TAB63 PO (13:49)
--- NOTE | 2017-02-09 13:54 | HHI.DS ---
Discharge Summary Admission Date Feb 02, 2017 at 18:56 Discharge Date: Feb 09, 2017 Admitting Diagnosis CAD Unstable angina (1) Coronary artery disease Diagnosis: Principal (2) Unstable angina Diagnosis: Principal (3) Diabetes mellitus Diagnosis: Secondary (4) Hyperlipemia Diagnosis: Secondary (5) History of BPH Diagnosis: Secondary Procedures CABG Brief History Patient reported that he presented to [facility] in [facility] on January after he had chest pain in the middle of the night around 4 AM. He is unsure whether the chest pain woke him up or whether he was already awake. He reports the pain was midsternal, with heaviness sensation, with radiation to his jaw and his upper extremities. He was evaluated by bookkeeping manager Dr. Saxena there and did undergo coronary angiogram on the same date February 02, 2017. Angiogram reports were missing in the paper chart although the CT disc is available in chart. According to the patient, Dr. Saxena had told him that he had 3 major blood vessels that were blocked and that he would need CABG. Patient reports of prior history of CAD back in the . He stated that at one point he was on beta blockers, and aspirin. He however was no longer on any medications for blood pressure or the heart because for one reason or the other, he does not want to take it and also his doctors did not pressure him to do so. He then had a stress test with Dr. Saxena recently and was actually scheduled for angiogram sometime March. This was canceled now because he had acute coronary syndrome presenting to hospital instead yesterday. Patient's reports a prior history of smoking. Quit in . He states he quit in . His case was discussed with cardiothoracic surgeon by Dr. Saxena and patient was transferred to hours facility for CABG. Patient is currently on heparin drip from the outside facility. Patient is chest pain-free at present. Apart from the chest pain, patient denies any recent fever/nausea/vomiting/ diarrhea/urinary burning or pain on urination. He denies any hematemesis/hematochezia/melena/hematuria. Denies any shortness of breath/palpitations/syncopal episodes. Past Medical History CAD- had been on cardiac meds in , had stress test with Dr Saxena but was told at that time for scheduled angiogram some time in mar; but was never on beta blockers or aspirin Hypertension Diabetes History of renal stone BPH basal cell cancer of nose Past Surgical History basal cell cancer sx coronary angiogram inguinal hernia left CBC/BMP: 02/09/17 0620 02/09/17 0620 Significant Findings Laboratory Tests Test 02/07/17 02/08/17 02/09/17 04:30 05:00 06:20 White Blood Count 22.6 TH/MM3 21.0 TH/MM3 16.3 TH/MM3 (4.0-11.0) (4.0-11.0) (4.0-11.0) Red Blood Count 3.42 MIL/MM3 3.29 MIL/MM3 3.10 MIL/MM3 (4.50-5.90) (4.50-5.90) (4.50-5.90) Hemoglobin 10.8 GM/DL 10.4 GM/DL 9.8 GM/DL (13.0-17.0) (13.0-17.0) (13.0-17.0) Hematocrit 32.3 % 31.1 % 29.0 % (39.0-51.0) (39.0-51.0) (39.0-51.0) Creatinine 0.59 MG/DL (0.60-1.30) Random Glucose 128 MG/DL 111 MG/DL 122 MG/DL (74-106) (74-106) (74-106) Calcium Level 7.8 MG/DL 8.3 MG/DL 8.4 MG/DL (8.5-10.1) (8.5-10.1) (8.5-10.1) Neutrophils (%) (Auto) 79.8 % (16.0-70.0) Monocytes (%) (Auto) 9.8 % (0.0-8.0) Neutrophils # (Auto) 16.7 TH/MM3 (1.8-7.7) Monocytes # (Auto) 2.1 TH/MM3 (0-0.9) Magnesium Level 2.6 MG/DL (1.5-2.5) Sodium Level 135 MEQ/L (136-145) Blood Urea Nitrogen 22 MG/DL (7-18) Imaging Last Impressions Chest X-Ray 02/07/17 0500 Signed Impressions: Service Date/Time: Tuesday, February 07, 2017 04:07 - CONCLUSION: Interval extubation. Otherwise little change. Dc Hinson MD Lower Extremity Ultrasound 02/03/17 0000 Signed Impressions: Service Date/Time: Friday, February 03, 2017 19:47 - CONCLUSION: 1. Venous mapping as above. Patent vessels. Eduard Luciano MD Carotid Artery Ultrasound 02/03/17 0000 Signed Impressions: Service Date/Time: Friday, February 03, 2017 19:18 - CONCLUSION: 1. No evidence for hemodynamically significant stenosis. There is [id number] atherosclerosis identified on grayscale images at the bifurcations. This is not hemodynamically significant. Eduard Luciano MD PE at Discharge chest - CTA COR - RRR ABD - NABS, NT Hospital Course 02/04 pt is pain free, on room air, CXR noted interstitial edema / dose of lasix given PFT pending for surgery on monday 02/05 for surgery in am pt pain free 02/07/17 No complaints 02/08/17 doing well, no complaints Discharge Disposition: Disch w/ Home Health Serv Discharge Instructions DIET: Follow Instructions for: Heart Healthy Diet Activities you can perform: Weight Bearing as Oleksandr, Shower Only-No Bath Activities to avoid: Lifting/Bending, Driving Follow up Referrals: Cardiology @ [facility] with Manuel Saxena MD PCP Follow-up with DR ALICEA [facility] with Terrie Grace MD New Orders: BASIC METABOLIC PROF - 2 Weeks CBC NO DIFF - 2 Weeks X-RAY CHEST PA & LAT - 2 Weeks New Medications: Amiodarone (Amiodarone) 200 Mg Tab 200 MG PO BID Regulate Heart Beat #[address] Ref [address] (Adult Aspirin EC Low Strength) 81 Mg Tabec 81 MG PO DAILY Blood Clot Prevention #100 Ref 6 TAB Metoprolol Tartrate (Metoprolol Tartrate) 25 Mg Tab 12.5 MG PO BID Blood Pressure Management #60 Ref 3 TAB Multiple Vitamins W/ Minerals (Thera M Plus) 1 Tab 1 TAB PO DAILY Nutritional Supplement #100 Ref 1 TAB Oxycodone-Acetaminophen (Oxycodone-Acetaminophen) 5-325 mg Tab 1 TAB PO Q3H PRN PAIN SCALE 1 TO 5 #30 Ref 0 TAB Pantoprazole (Pantoprazole) 40 Mg Tab 40 MG PO DAILY@06 Prevent Stress Ulcers #28 Ref 0 TAB Continued Medications: Ascorbic Acid (Vitamin C) 250 Mg Tab 250 MG PO DAILY Nutritional Supplement Ref 0 TAB Cholecalciferol (Vitamin D-1000) 1,000 Unit Tab 1000 UNITS PO DAILY Nutritional Supplement #1 Ref 0 BOTTLE Cinnamon (Hm Cinnamon) 500 Mg Cap 1000 CAPLET BID Cyanocobalamin (Vitamin B-12) 1,000 Mcg Tab 1000 MCG PO DAILY Nutritional Supplement #1 Ref [address] (Diclofen[address] Sodium DR) 75 Mg Tabdr 75 MG PO DAILY #30 Ref 0 TAB Glucosamine (Glucosamine) 500 Mg Cap 500 MG PO BID Herbal Supplements Ref 0 CAP Lutein (Lutein) 40 Mg Cap 40 MG PO DAILY Nutritional Supplement Ref 0 CAP Magnesium (Sm Magnesium) 250 Mg Tab DAILY Metformin (Metformin) 500 Mg Tab 500 MG PO BID With a meal Blood Sugar Management #30 Ref 0 TAB [place]-3 Fatty Acids (Fish Oil) 1,000 Mg Cap 1600 DAILY Saw Mershon (Serenoa Repens) (Saw Mershon (Serenoa Repens)) 450 Mg Cap 450 MG PO BID Ref 0 CAP Simvastatin (Zocor) 40 Mg Tab 40 MG PO Cholesterol Management #30 Ref 0 TAB Terrie Grace MD Feb 09, 2017 13:54
== END 2017-02-09 16:25 | disposition home health service (06) | DRG 236 ==
LOC: N04A 18:05 → OBSVTOIN 18:56 → HCIN 02-03 18:33 → HCIS 02-03 20:40 → HCIN 02-03 20:41 → HCVR 02-05 15:44 → HCIN 02-07 16:03
PROVIDERS: ADMIT Family Medicine; ATTEND Family Medicine
PROC: 06BQ4ZZ Excision of Left Saphenous Vein, Percutaneous Endoscopic Approach (ICD-10-PCS; 2017-02-06)
PROC: 5A1221Z Performance of Cardiac Output, Continuous (ICD-10-PCS; 2017-02-06)
PROC: 02100Z9 Bypass Coronary Artery, One Artery from Left Internal Mammary, Open Approach (ICD-10-PCS; principal; 2017-02-06 07:04)
PROC: 021109W Bypass Coronary Artery, Two Arteries from Aorta with Autologous Venous Tissue, Open Approach (ICD-10-PCS; 2017-02-06 07:04)
DX: I21.4 Non-ST elevation (NSTEMI) myocardial infarction (principal); I11.9 Hypertensive heart disease without heart failure; E11.9 Type 2 diabetes mellitus without complications; E78.5 Hyperlipidemia, unspecified; D72.829 Elevated white blood cell count, unspecified; I25.110 Atherosclerotic heart disease of native coronary artery with unstable angina pectoris; I51.7 Cardiomegaly; N40.0 Benign prostatic hyperplasia without lower urinary tract symptoms; M19.90 Unspecified osteoarthritis, unspecified site; Z79.84 Long term (current) use of oral hypoglycemic drugs; Z87.891 Personal history of nicotine dependence; Z85.828 Personal history of other malignant neoplasm of skin; Z87.442 Personal history of urinary calculi
CPT/HCPCS: 71010; 71020; 76937; 80048; 80053; 81001; 82272; 82948; 83036; 83735; 85025; 85027; 85610; 85730; 86850; 86900; 86901; 86920; 87641; 93005; 93306; 93880; 93970; 93998; 94002; 94010; 94150; 94640; 94664; 94667; 94668; J0131; J0690; J1644; J1815; J1940; J2150; J2250; J2370; J2440; J2720; J2765; J2930; J3010; J3370; J3475; J3480; J7050; J7120; P9047